=== PATIENT | male | born 1995 | race Caucasian/White ===

== ENCOUNTER 2018-12-09 08:53 | Inpatient (IN) ==
--- OUTSIDE RECORDS SUMMARY | 2018-12-09 08:57 | External Medical Summary | Continuity of Care Document ---
:1995 Author Name Anne Erickson, Provider Address Unavailable Unavailable , Care Team Providers Name Role Phone Martinez Elizabeth PA-C Unavailable [email or web address] Medel Unavailable Unavailable Unavailable Unavailable Unavailable Problems Hyperlipidemia (272.4) (E78.5) Abnormal TSH (790.6) (R79.89) Insulin pump titration (V53.91) (Z46.81) Type 1 diabetes mellitus, uncontrolled (250.03) (E10.65) Hypoglycemia unawareness in type 1 diabetes mellitus (250.81 ) (E10.649) Allergies and Adverse Reactions Adhesive Tape (Allergy) Reaction: Rash, Itching Latex (Allergy) Reaction: Itching, R kirsty Medications OneTouch UltraSoft Lancets; Test 5 times daily for multiple daily insulin injections Type 1 Diabetes Mellitus E10.9 Start: Refills: 0 BD Insulin Syringe U/F 30G X 1/2" 0.5 ML; USE DIREC KANCHAN. for pump failure VINEET Elizabeth Start: 06-Jan-2016 Quantity: 1 100 Unit Box Refills: 3 Glucagon Emergency 1 MG Injection Kit; U se for hypoglycemic emergency for Type 1 Diabetes Mellitus (E10.9) VINEET Elizabeth Start: 06-Jan-2016 Quantity: 1 Refills: 5 NovoLOG 100 UNIT/ML Subcutaneous Solutio n; INJECT 100 UNIT Daily via insulin pump VINEET Elizabeth Start: 06-Jan-2016 Quantity: 9 10 ML Vial Refills: 3 Contour Next Test In Vitro Strip; Test 6 times daily VINEET Campa Start: 08-Nov-2018 Quantity: 6 100 Strip Box Refills: 3 Bernadine Microlet Lancets MISC; Test 6 times daily Halle Elizabeth Start: 08-Nov-2018 Quantity: 6 100 Unit Package Refills: 3 Procedures Lipid Profile - NON Fasting Date: 11-Nov-2018 Ultra TSH Date: 08-Nov-2018 Hemoglobin A1C Date: 08-Nov-2018 History of Oral Surgery Status: Complete d Immunizations Immunizations not documented Family History Mother Family history of hypertension (V17.49) (Z82.49) Status: Act carlos Father Family history of hypertension (V17.49) (Z82.49) Status: Act carlos Social History - Smoking Status Never smoker Plan of Treatment Planned Observations Planned Goals not documented Results Diabetic Foot Exam IH (Pending) Laboratory: In House 08-Nov-2018 0:00 Monofilament Normal Vital Signs 08-Nov-2018 15:15 other 48 Comments: Total basa l dose other 102 Comments: Total shae y dose other 20 Comments: Sensitivit y factor Encounters Appointment; Martinez Elizabeth PA-C 08-Nov-2018 13:00 Encounter Diagnosis: Problem not documented Appointment; Najma Garcia R.D. 30-Aug-2018 9:30 Encounter Diagnosis: Problem not documented Appointment; Martinez Elizabeth PA-C 26-Jul-2018 15:30 Encounter Diagnosis: Problem not documented Appointment; Martinez Elizabeth PA-C 22-Mar-2018 11:00 Encounter Diagnosis: Problem not documented Appointment; Martinez Elizabeth PA-C 14-Dec-2017 9:00 Encounter Diagnosis: Problem not documented Appointment; Najma Garcia R.D. 06-Jul-2017 9:30 Encounter Diagnosis: Problem not documented Appointment; Martinez Elizabeth PA-C 01-Jun-2017 9:30 Encounter Diagnosis: Problem not documented Appointment; Martinez Elizabeth PA-C 23-Feb-2017 14:30 Encounter Diagnosis: Problem not documented Appointment; Martinez Elizabeth PA-C 19-Jan-2017 11:00 Encounter Diagnosis: Problem not documented
--- NOTE | 2018-12-09 09:24 | XRay Report ---
XR tibia fibula RT 2V CLINICAL HISTORY: 23 years-old Male presenting with injury to right tib fib. TECHNIQUE: Frontal and lateral views of the right lower leg were obtained. COMPARISON: None. FINDINGS: Spiral fractures of the distal tibial and fibular diaphyses. There is up to 4 mm of lateral displacem ent of the distal tibial fracture fragment. There may be a comminuted component in the fibular fractu re. An apparent butterfly fracture fragment at the distal fibular fracture is laterally displaced desiree roximately 3 mm from both the proximal and distal fibular components. There is no angulation. However , 5 mm of posterior displacement of the distal tibial fracture fragment is noted. No significant AP d isplacement at the fibular fracture. Ankle mortise grossly intact as is the knee joint. Soft tissue s welling at the distal lower leg. IMPRESSION: Spiral fractures of the distal tibial and fibular diaphyses. The fibular fracture may be comminuted. Minimal displacement as detailed above. No significant angulation. Electronically signed by: Cuco Campbell M.D. 12/09/2018 9:23 AM
[2018-12-09 09:31] LABS: Basophils # (auto) 0.03 K/uL (0-0.2); Basophils % (auto) 0.3 %; Eosinophils # (auto) 0.13 K/uL (0-0.5); Eosinophils % (auto) 1.5 %; Hematocrit (blood only) 43.4 % (42-52); Hemoglobin 15.9 g/dL (14.0-18.0); Immature Granulocytes # (auto) 0.03 K/uL (0.00-0.02); Immature Granulocytes % (auto) 0.3 %; Lymphocytes # (auto) 2.58 K/uL (1.2-3.4); Lymphocytes % (auto) 30.1 %; Mean Corpuscular Hgb Conc 36.6 g/dL (32-36); Mean Corpuscular Volume 81.1 fL (80-100); Monocytes # (auto) 0.89 K/uL (0.11-0.59); Monocytes % (auto) 10.4 %; Neutrophils # (auto) 4.92 K/uL (1.4-6.5); Neutrophils % (auto) 57.4 %; Platelet Count 239 K/uL (130-400); RDW Coefficient of Variation 12.6 % (11.5-14.5); RDW Standard Deviation 36.9 fL (36.4-46.3); Red Blood Count 5.35 M/uL (4.7-6.1); White Blood Count 8.58 K/uL (4.8-10.8)
[2018-12-09 09:47] LABS: Albumin Level 3.9 gm/dl (3.4-5.0); BUN Creatinine Ratio 12.9 (10-20); Calcium 8.8 mg/dl (8.5-10.1); Creatinine Clr Calc Pharmacy 109.7 ml/min; Est GFR (African American) 101.9; Potassium 3.8 mmol/L (3.5-5.1)
[2018-12-09 09:50] LABS: Albumin Globulin Ratio 1.1 (0.9-2); Bilirubin,Total 0.6 mg/dl (0.2-1); Globulin 3.5 gm/dl (2.5-4.0); Total Protein 7.4 gm/dl (6.4-8.2)
[2018-12-09] MEDS ORDERED: SODIUM CHLORIDE 0.9% 1000ML 1,000 ML IV ONE (10:52)
[2018-12-09] MEDS ORDERED: MoRPHine SULFATE 4 MG/ML 1 ML CARP\\VIAL IV STA (10:52)
[2018-12-09 11:22] LABS: Estimated Average Glucose 203 mg/dl; Hemoglobin A1C 8.7 % (4.5-5.6)
--- NOTE | 2018-12-09 11:23 | History & Physical Report ---
Date of Service December 09, 2018 Assessment & Plan (1) History of lower leg fracture: Assessment: Mildly displaced Right distal tibia/fibular fracture Plan: NPO. Will proceed with ORIF of Right distal tibia/fibular fracture with intramedullary jared this afternoon. Informed written consent obtained from patient in ED by Dr. Perry. Risks, benefits, alternatives, and post- operative rehab were discussed. Patient and family understand and wish to proceed with surgical intervention. Consult for medicine placed due to diabetic history. Will have patient admitted overnight after surgery for pain management and PT/OT eval tomorrow AM. History of Present Illness Chief Complaint: Right tib/fib fracture Primary Care Provider: SHARI PCP This 23 yo M is seen in ED (B 10) after twisting his Right lower leg at work this AM, causing his injury. Patient is currently splinted and resting in bed with pain fairly well controlled. Last intake of solid food was 4:30-5:00 AM and last liquid intake was 7:00 AM. Denies CP, SOB, nausea, vomiting, fever, chills, sweats, lethargy, head or neck trauma. Has hist of Type I diabetes with insulin pump use. Last HgA1C on 03/22/18 was 11.1. There is also one pending today. Allergies Allergy/AdvReac Type Severity Reaction Status Date / Time No Known Allergies Allergy Unverified 12/09/18 10:16 Home Medications Home Medications Medication Instructions Recorded Confirmed Type insulin aspart U-100 [Novolog 100 unit CONTINUOUS SUBCUTANEOUS 12/09/18 12/09/18 History U-100 Insulin aspart] INFUSION .INSULIN PUMP Past Med/Surg History Medical History Type 1 diabetes History of lower leg fracture RT Surgical History History of orthopedic surgery Social History current occupational status: employed Feels Safe at Home: Yes Smoking Status: Never smoker Review of Systems All systems reviewed & are unremarkable except as noted in HPI & below Physical Exam Vital Signs (Past 24 Hours): Last Vital Signs Temp 36.7 C 12/09/18 09:09 Pulse 98 H 12/09/18 09:09 Resp 18 12/09/18 09:09 BP 147/88 H 12/09/18 09:09 Pulse Ox 97 12/09/18 09:09 Physical Exam: Right lower leg: leg splinted with air splint provided by EMS. Patient has appropriate dexterity of digits. Able to depict light sensation to touch on dorsal and plantar surface of the foot. Swelling and tenderness at distal 1/3 tibia with no skin lesions. Periph pulses easily palpable. Cap refill less than 2 seconds. ROM at knee or ankle not tested due to fracture. NV intact in entire Rt LE. Results & Data Diagnostic Findings Tib/fib x-ray shows spiral fracture to Right distal tibia with fibular fracture at same level. Supervising Physician Co-Signing Physician Notes I saw and examined the patient in the ER, and marked his surgical site. HgA1c is pending, however, his last A1c showed poorly controlled DM. Patient understands that his diabetes places him at elevated risk for complications such as delayed wound healing, infection, non-union, and medical complications. After reviewing all the risks/benefits, alternatives and expected outcomes, he elects to proceed. All questions answered. Informed consent signed. Plan on proceeding to OR this afternoon once he clears his 8 hours NPO. Internal medicine consulted to assist in management of his DM.
[2018-12-09] MEDS ORDERED: INSULIN ASPART U continuous subcutaneous infusion SCH (11:30)
[2018-12-09] MEDS ORDERED: SODIUM CHLORIDE 0.9% 1000ML 1,000 ML IV SCH (11:30)
[2018-12-09] MEDS ORDERED: GLUCAGON FOR INJ 1 MG VIAL SQ PRN (11:46)
[2018-12-09] MEDS ORDERED: CARBOHYDRATES FOR HYPOGLYCEMIA PO PRN (11:46)
[2018-12-09] MEDS ORDERED: GLUCOSE 10 TABS/TUBE PO PRN (11:46)
[2018-12-09] MEDS ORDERED: DEXTROSE 50% 50 ML SYRINGE IV PRN (11:46)
[2018-12-09] MEDS ORDERED: GLUCOSE 40% GEL 15 GM TUBE PO PRN (11:46)
[2018-12-09] MEDS ORDERED: CEFAZOLIN 1,000 MG/7.5 ML IV PUSH IV ONE (12:15)
--- NOTE | 2018-12-09 12:25 | Consultation ---
Date of Consultation December 09, 2018 Assessment & Plan (1) Type 1 diabetes: Patient with Type I DM with insulin pump in place. A1C=8.7. Last PO intake this AM -Continue insulin pump for now, if inadequate control will place on hold and provide basal/bolus coverage -Please limit amount of time patient will be NPO -Fingersticks q4 hours -Glycemic management consult -Advance diet to Type I DM post-operatively when cleared by surgical team Present on Admission?: Yes (2) History of lower leg fracture: S/p mechanical fall with fracture of distal tibia/fibula. Patient in considerable pain, improved with IV medication. Neurovascularly intact. To proceed to the OR today at 15:00. Patient may proceed with surgery with no additional testing. Thank you for this consult. We will continue to follow. History of Present Illness Reason for Consultation: Perioperative medical management History of Present Illness Mr. Morse is a pleasant 23yo male with Type I DM, insuliln pump in-situ presenting with right tibia-fibula fracture sustained earlier today. 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 Unable to bear weight, severe pain. Imaging confirmed presence of spiral fractures of the distal tibia and fibula diaphysis. Presently pain 7-8/10. He was just administered Morphine. Reports good blood sugar control overall. He aims for 80 - 150. AIC =8.7 today which is markedly improved from prior value of 11.1. ER Course: Morphine 4mg IV, NSS Allergies Allergy/AdvReac Type Severity Reaction Status Date / Time No Known Allergies Allergy Unverified 12/09/18 10:16 Home Medications Home Medications Medication Instructions Recorded Confirmed Type insulin aspart U-100 [Novolog 100 unit CONTINUOUS SUBCUTANEOUS 12/09/18 12/09/18 History U-100 Insulin aspart] INFUSION .INSULIN PUMP Patient History Medical History Type 1 diabetes History of lower leg fracture RT Surgical History History of orthopedic surgery Family History Other Family history non-contributory Social History current occupational status: employed Feels Safe at Home: Yes Smoking Status: Never smoker Review of Systems Review of Systems: All systems reviewed & are unremarkable except as noted in HPI & below Physical Exam Physical Exam: General: patient resting comfortably, NAD, non-toxic in appearance, AA&O x 4 Skin: warm, dry, intact, no rashes or lesions HEENT: NC/AT, PERRL, EOMI, anicteric sclera, conjunctiva without injection, external ear normal to inspection and nontender, nares patent, moist mucus membranes, dentition intact, no oropharyngeal lesions, neck supple, trachea midline, no LAD, no thyromegaly, no JVD Heart: +S1/S2, regular, no m/r/g Lungs: equal air entry bilaterally, no rales/rhonchi/wheezes Abd: +BS, soft, NT/ND, no masses/organomegaly/ascites Ext: warm, 2+ pulses in UE/LE bilaterally, no clubbing/cyanosis or edema, right leg immobilized, neurovascularly intact Neuro: nonfocal, patient AA&O x 4, speech intact, no facial droop, moving all extremities on command with equal strength 5/5 Results & Data Vital Signs (Past 12 Hours) Vital Signs Temp Pulse Pulse Resp BP BP Pulse Ox 12/09/18 11:24 60 20 157/79 H 94 12/09/18 09:09 36.7 C 98 H 18 147/88 H 97 Laboratory Results Lab Results 12/09/18 12/09/18 12/09/18 Range/Units 09:18 09:18 09:18 WBC 8.58 (4.8-10.8) K/uL RBC 5.35 (4.7-6.1) M/uL Hgb 15.9 (14.0-18.0) g/dL Hct 43.4 (42-52) % MCV 81.1 (80-100) fL MCH 29.7 (25-34) pg MCHC 36.6 H (32-36) g/dL RDW Std Deviation 36.9 (36.4-46.3) fL RDW Coeff of Rosario 12.6 (11.5-14.5) % Plt Count 239 (130-400) K/uL MPV 9.0 (7.4-10.4) fL Immature Gran % (Auto) 0.3 % Neut % (Auto) 57.4 % Lymph % (Auto) 30.1 % [place] % (Auto) 10.4 % Eos % (Auto) 1.5 % Baso % (Auto) 0.3 % Immature Gran # (Auto) 0.03 H (0.00-0.02) K/uL Neut # (Auto) 4.92 (1.4-6.5) K/uL Lymph # (Auto) 2.58 (1.2-3.4) K/uL [place] # (Auto) 0.89 H (0.11-0.59) K/uL Eos # (Auto) 0.13 (0-0.5) K/uL Baso # (Auto) 0.03 (0-0.2) K/uL Sodium 137 (136-145) mmol/L Potassium 3.8 (3.5-5.1) mmol/L Chloride 103 (98-107) mmol/L Carbon Dioxide 27 (21-32) mmol/L Anion Gap 7.0 (3-11) BUN 15 (7-18) mg/dl Creatinine 1.15 (0.6-1.4) mg/dl Est Cr Clr Drug Dosing 109.7 ml/min Est GFR ( Amer) 101.9 Est GFR (Non-Af Amer) 88.0 BUN/Creatinine Ratio 12.9 (10-20) Glucose 216 H (70-99) mg/dl Estimat Average Glucose 203 mg/dl Hemoglobin A1c 8.7 H (4.5-5.6) % Calcium 8.8 (8.5-10.1) mg/dl Total Bilirubin 0.6 (0.2-1) mg/dl AST 17 (15-37) U/L ALT 22 (12-78) U/L Alkaline Phosphatase 111 (45-117) U/L Total Protein 7.4 (6.4-8.2) gm/dl Albumin 3.9 (3.4-5.0) gm/dl Globulin 3.5 (2.5-4.0) gm/dl Albumin/Globulin Ratio 1.1 (0.9-2) Diagnostic Findings XR tibia fibula RT 2V CLINICAL HISTORY: 23 years-old Male presenting with injury to right tib fib. TECHNIQUE: Frontal and lateral views of the right lower leg were obtained. COMPARISON: None. FINDINGS: Spiral fractures of the distal tibial and fibular diaphyses. There is up to 4 mm of lateral displacement of the distal tibial fracture fragment. There may be a comminuted component in the fibular fracture. An apparent butterfly fracture fragment at the distal fibular fracture is laterally displaced approximately 3 mm from both the proximal and distal fibular components. There is no angulation. However, 5 mm of posterior displacement of the distal tibial fracture fragment is noted. No significant AP displacement at the fibular fracture. Ankle mortise grossly intact as is the knee joint. Soft tissue swelling at the distal lower leg. IMPRESSION: Spiral fractures of the distal tibial and fibular diaphyses. The fibular fracture may be comminuted. Minimal displacement as detailed above. No significant angulation. Electronically signed by: Cuco Campbell M.D. 12/09/2018 9:23 AM Dictated: 12/09/18919 Transcribed: 12/09/18919 (1) Type 1 diabetes Diabetes mellitus complication status: without complication Qualified Code(s): E10.9 - Type 1 diabetes mellitus without complications
[2018-12-09] MEDS ORDERED: LIDOCAINE HCL 2% 2 ML VIAL/AMP(20MG/ML) INFIL ONE (12:56)
[2018-12-09] MEDS ORDERED: MIDAZOLAM HCL 1 MG/ML 2ML VIAL ONE (12:56)
[2018-12-09] MEDS ORDERED: PROPOFOL IV EMULSION 10 MG/ML 20 ML VIAL IV ONE (12:56)
[2018-12-09] MEDS ORDERED: fentaNYL citrate 100 MCG/2 ML VIAL ONE (12:56)
--- NOTE | 2018-12-09 12:57 | Anesthesiology Consultation ---
Date of Service December 09, 2018 Assessment & Plan Chart Review Chart Review: Acceptable Risk for Surgery and Patient NOT seen in Pre Admission Testing Consults Requested none ASA ASA2E Proposed Anesthesia Anesthesia Type: General Risk / Benefits Reviewed With: PT / POA / Parent / Guardian, Accepts Plan and Informed Consent Obtained History Surgery Operation Date: 12/09/18 10:20 Proposed Procedures p Right Intramedullary Nail Tibia-Fibula Fracture - Cuco Perry MD Height/Weight Height: 5 ft 10 in Weight: 87.9 kg Allergies Allergy/AdvReac Type Severity Reaction Status Date / Time No Known Allergies Allergy Verified 12/09/18 12:45 Medications Home Medications Medication Instructions Recorded Confirmed Last Taken insulin aspart U-100 [Novolog 100 unit CONTINUOUS SUBCUTANEOUS 12/09/18 12/09/18 12/09/18 U-100 Insulin aspart] INFUSION .INSULIN PUMP NPO Date Last Intake of Fluids: 12/09/18 Time Last Intake of Fluids: 07:00 Date Last Intake of Solids: 12/09/18 Time Last Intake of Solids: 05:00 Past Medical History Medical History Type 1 diabetes History of lower leg fracture RT Exercise / Class Metabolic Activity II 4-5 Yardwork/Stairs/Walk up hill Past Family History Family History Other Family history non-contributory Past Surgical History Surgical History History of orthopedic surgery Past Anesthesia History No Hx of Anesthesia Complications and No Family Hx of Anesthesia Complications History of PONV No Hx of PONV and No Hx of Motion Sickness Social History Smoking Status: Never smoker Physical Exam Vital Signs Last Vital Signs Temp 36.7 C 12/09/18 09:09 Pulse 85 12/09/18 12:18 Resp 20 12/09/18 12:18 BP 146/80 H 12/09/18 12:18 Pulse Ox 97 12/09/18 12:18 Constitutional not obese ENMT Mouth: + poor dentition and + chipped teeth (both R & L UCI's) Thyromental Distance: > or= 3.5 Finger Breadths Mallampati Class: II Neck normal visual inspection and trachea midline; neck extension not limited Respiratory normal respiratory effort Auscultation: lungs clear to auscultation bilaterally Cardiovascular Rate/Rhythm: regular rate and regular rhythm Heart Sounds: no murmur Musculoskeletal Spine: normal cervical ROM Neurologic moves all extremities Motor/Sensory: no sensory deficit Psychiatric Orientation: alert; + not oriented x 3
[2018-12-09] MEDS ORDERED: BUPIVACAINE/EPINEPHRINE 0.5% MPF 1:200,000 30 ML VIAL ONE (13:44)
[2018-12-09] MEDS ORDERED: CEFAZOLIN 250 MG/ML 1 GM VIAL ONE (13:45)
[2018-12-09] MEDS ORDERED: HYDROmorphone INJ 2 MG/ML SYR/VIAL ONE (13:52)
[2018-12-09] MEDS ORDERED: ONDANSETRON INJ 2 MG/ML 2 ML VIAL ONE (14:08)
[2018-12-09] MEDS ORDERED: CEFAZOLIN 1000MG 1,000 MG/7.5 ML SYR IV ONE (14:12)
[2018-12-09] MEDS ORDERED: PROMETHAZINE HCL 12.5 MG in SODIUM CHLORIDE 0.9% 50 ML IV PRN (14:57)
[2018-12-09] MEDS ORDERED: ATROPINE SULFATE 0.1 MG/ML 10ML SYR IV PRN (14:57)
[2018-12-09] MEDS ORDERED: FLUMAZENIL 0.1 MG/1 ML 10 ML VIAL IV PRN (14:57)
[2018-12-09] MEDS ORDERED: ePHEDrine sulfate 50 MG/ML AMP IV PRN (14:57)
[2018-12-09] MEDS ORDERED: NALOXONE HCL 0.4 MG/1 ML VIAL/CARP IV PRN ×2 (14:57→18:06)
[2018-12-09] MEDS ORDERED: ONDANSETRON INJ 2 MG/ML 2 ML VIAL IV PRN ×2 (14:57→18:06)
[2018-12-09] MEDS ORDERED: PHARMACY GLYCEMIC MGMT CONSULT PRN (15:32)
--- NOTE | 2018-12-09 16:03 | Emergency Department Note ---
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 The patient reports that he tripped on a concrete pole and fell, twisting his leg and injuring his leg. He states that he has fracture the same area before. He denies any injuring his head during this fall or loss of consciousness. He also denies any neck pain, abdominal pain, or chest pain. He notes that he has a history of Type 1 diabetes and reports that his sugar has been in the 150s. He states that he last ate earlier today. Home Medications Home Medications Medication Instructions Recorded Confirmed Type insulin aspart U-100 [Novolog 100 unit CONTINUOUS SUBCUTANEOUS 12/09/18 12/09/18 History U-100 Insulin aspart] INFUSION .INSULIN PUMP Allergies Allergy/AdvReac Type Severity Reaction Status Date / Time No Known Allergies Allergy Verified 12/09/18 12:45 Past Med/Surg History Medical History Type 1 diabetes History of lower leg fracture RT Surgical History History of orthopedic surgery Family History Other Family history non-contributory Social History current occupational status: employed Feels Safe at Home: Yes Smoking Status: Never smoker Review of Systems See HPI for pertinent positives & negatives. and A total of 10 systems reviewed and were otherwise negative Physical Exam Vital Signs Vital Signs - 24 hr 12/09/18 09:09 12/09/18 11:24 12/09/18 12:18 Temperature 36.7 C Temperature Source Oral Sepsis Recent Fever Within 48 Hours No Sepsis New/Unexplained Change in Mental Status No Sepsis Action Taken by Nursing No Action Required Pulse Rate 98 H Pulse Rate [Apical] 60 85 Pulse Rate [Left Finger] Pulse Rhythm Regular Pulse Rhythm [Apical] Regular Regular Pulse Rhythm [Left Finger] Pulse Strength Normal Pulse Strength [Apical] Normal Normal Pulse Strength [Left Finger] Respiratory Rate 18 20 20 Respiratory Effort / Characteristics Non-Labored Spontaneous Non-Labored Spontaneous Non-Labored Spontaneous Respiratory Depth Normal Normal Normal Respiratory Pattern Regular Regular Blood Pressure 147/88 H Blood Pressure [Right Arm] 157/79 H 146/80 H Blood Pressure Mean 107 Blood Pressure Mean [Right Arm] 105 102 Blood Pressure Position Sitting Blood Pressure Position [Right Arm] Pulse Oximetry 97 94 97 Oxygen Delivery Method Room Air Room Air Room Air 12/09/18 12:47 Temperature 37.4 C Temperature Source Oral Sepsis Recent Fever Within 48 Hours Sepsis New/Unexplained Change in Mental Status Sepsis Action Taken by Nursing Pulse Rate Pulse Rate [Apical] Pulse Rate [Left Finger] 78 Pulse Rhythm Pulse Rhythm [Apical] Pulse Rhythm [Left Finger] Regular Pulse Strength Pulse Strength [Apical] Pulse Strength [Left Finger] Normal Respiratory Rate 20 Respiratory Effort / Characteristics Non-Labored Spontaneous Respiratory Depth Normal Respiratory Pattern Regular Blood Pressure Blood Pressure [Right Arm] 144/77 H Blood Pressure Mean Blood Pressure Mean [Right Arm] 99 Blood Pressure Position Blood Pressure Position [Right Arm] Sitting Pulse Oximetry 96 Oxygen Delivery Method Room Air General: Uncomfortable appearing young male complaining of pain. HEENT: Normal cephalic atraumatic. Pupils are equal round and reactive to light. Extraocular movements are intact. Oropharynx is pink with moist mucous membra satnam. No swelling of the mouth lips or tongue. Neck: Supple with a midline trachea. No meningeal signs or stiffness, no JVD or bruits. No Stridor. Chest: Clear to auscultation bilaterally. No wheezes or rhonchi. No increased work of breathing. Heart: regular rate and rhythm. Abdomen: Soft nontender, nondistended without rebound guarding or rigidity. Extremities: No cyanosis clubbing or edema. No calf tenderness or asymmetry. Right leg is splinted. Normal DP and motor sensation intact. Spine/Back. Non tender to palpation. No CVA tenderness Skin: Good turgor without rashes. Neurologic exam: Cranial nerves two through 12 are intact. Motor and sensation are intact and symmetrical throughout. Course 0855: Past medical records reviewed. The patient was evaluated in room B10. A complete history and physical examination was performed. 1043: I discussed the patients case with Dr. [facility]. He will come evaluate the patient. 1210: Dr. Perry will be taking the patient to the OR. Administered Medications Discontinued Medications Bupivacaine HCl/Epinephrine Bitart (Sensorcaine/Epinephrine 0.5% Mpf 1:200,000) Confirm Administered Dose 30 ml .ROUTE .STK-MED ONE Stop: 12/09/18 13:45 Last Admin: 12/09/18 14:44 Dose: 30 ml Documented by: [id number] Cefazolin Sodium (Ancef 1000mg) Confirm Administered Dose 2,000 mg IV .STK-MED ONE Stop: 12/09/18 12:16 Last Admin: 12/09/18 12:17 Dose: 2,000 mg Documented by: [id number] Sodium Chloride (Nss 1000ml) 1,000 mls @ 999 mls/hr IV .Q1H1M ONE Stop: 12/09/18 11:52 Last Admin: 12/09/18 11:08 Dose: 999 mls/hr Documented by: [id number] Cefazolin Sodium (Ancef 1000mg) 1,000 mg in 7.5 mls @ 2.5 mls/min IV ONCE ONE Stop: 12/09/18 14:14 Last Admin: 12/09/18 13:47 Dose: 2.5 mls/min Documented by: [id number] Morphine Sulfate (Morphine Sulfate) 4 mg IV NOW STA Stop: 12/09/18 10:53 Last Admin: 12/09/18 11:07 Dose: 4 mg Documented by: [id number] Medical Decision Making Differential Diagnosis Differential diagnosis includes: fracture, dislocation, contusion, electrolyte and metabolic abnormality. Medical Records Attestation: I reviewed the patient's medical records. Home Medications Current Medication List: was personally reviewed by me Laboratory Data Attestation: I reviewed the patient's lab results. Result diagrams: 12/09/18 09:18 12/09/18 09:18 Lab Results 12/09/18 12/09/18 12/09/18 Range/Units 09:18 09:18 09:18 WBC 8.58 (4.8-10.8) K/uL RBC 5.35 (4.7-6.1) M/uL Hgb 15.9 (14.0-18.0) g/dL Hct 43.4 (42-52) % MCV 81.1 (80-100) fL MCH 29.7 (25-34) pg MCHC 36.6 H (32-36) g/dL RDW Std Deviation 36.9 (36.4-46.3) fL RDW Coeff of Rosario 12.6 (11.5-14.5) % Plt Count 239 (130-400) K/uL MPV 9.0 (7.4-10.4) fL Immature Gran % (Auto) 0.3 % Neut % (Auto) 57.4 % Lymph % (Auto) 30.1 % Daggett % (Auto) 10.4 % Eos % (Auto) 1.5 % Baso % (Auto) 0.3 % Immature Gran # (Auto) 0.03 H (0.00-0.02) K/uL Neut # (Auto) 4.92 (1.4-6.5) K/uL Lymph # (Auto) 2.58 (1.2-3.4) K/uL Daggett # (Auto) 0.89 H (0.11-0.59) K/uL Eos # (Auto) 0.13 (0-0.5) K/uL Baso # (Auto) 0.03 (0-0.2) K/uL Sodium 137 (136-145) mmol/L Potassium 3.8 (3.5-5.1) mmol/L Chloride 103 (98-107) mmol/L Carbon Dioxide 27 (21-32) mmol/L Anion Gap 7.0 (3-11) BUN 15 (7-18) mg/dl Creatinine 1.15 (0.6-1.4) mg/dl Est Cr Clr Drug Dosing 109.7 ml/min Est GFR ( Amer) 101.9 Est GFR (Non-Af Amer) 88.0 BUN/Creatinine Ratio 12.9 (10-20) Glucose 216 H (70-99) mg/dl POC Glucose (70-99) Estimat Average Glucose 203 mg/dl Hemoglobin A1c 8.7 H (4.5-5.6) % Calcium 8.8 (8.5-10.1) mg/dl Total Bilirubin 0.6 (0.2-1) mg/dl AST 17 (15-37) U/L ALT 22 (12-78) U/L Alkaline Phosphatase 111 (45-117) U/L Total Protein 7.4 (6.4-8.2) gm/dl Albumin 3.9 (3.4-5.0) gm/dl Globulin 3.5 (2.5-4.0) gm/dl Albumin/Globulin Ratio 1.1 (0.9-2) 12/09/18 12/09/18 12/09/18 Range/Units 12:40 14:05 15:10 WBC (4.8-10.8) K/uL RBC (4.7-6.1) M/uL Hgb (14.0-18.0) g/dL Hct (42-52) % MCV (80-100) fL MCH (25-34) pg MCHC (32-36) g/dL RDW Std Deviation (36.4-46.3) fL RDW Coeff of Rosario (11.5-14.5) % Plt Count (130-400) K/uL MPV (7.4-10.4) fL Immature Gran % (Auto) % Neut % (Auto) % Lymph % (Auto) % Daggett % (Auto) % Eos % (Auto) % Baso % (Auto) % Immature Gran # (Auto) (0.00-0.02) K/uL Neut # (Auto) (1.4-6.5) K/uL Lymph # (Auto) (1.2-3.4) K/uL Daggett # (Auto) (0.11-0.59) K/uL Eos # (Auto) (0-0.5) K/uL Baso # (Auto) (0-0.2) K/uL Sodium (136-145) mmol/L Potassium (3.5-5.1) mmol/L Chloride (98-107) mmol/L Carbon Dioxide (21-32) mmol/L Anion Gap (3-11) BUN (7-18) mg/dl Creatinine (0.6-1.4) mg/dl Est Cr Clr Drug Dosing ml/min Est GFR ( Amer) Est GFR (Non-Af Amer) BUN/Creatinine Ratio (10-20) Glucose (70-99) mg/dl POC Glucose 126 H 154 H 161 H (70-99) Estimat Average Glucose mg/dl Hemoglobin A1c (4.5-5.6) % Calcium (8.5-10.1) mg/dl Total Bilirubin (0.2-1) mg/dl AST (15-37) U/L ALT (12-78) U/L Alkaline Phosphatase (45-117) U/L Total Protein (6.4-8.2) gm/dl Albumin (3.4-5.0) gm/dl Globulin (2.5-4.0) gm/dl Albumin/Globulin Ratio (0.9-2) Imaging Data Radiologist's Impression: Radiology results as stated below per my review and the radiologist's interpretation: XR tibia fibula RT 2V CLINICAL HISTORY: 23 years-old Male presenting with injury to right tib fib. TECHNIQUE: Frontal and lateral views of the right lower leg were obtained. COMPARISON: None. FINDINGS: Spiral fractures of the distal tibial and fibular diaphyses. There is up to 4 mm of lateral displacement of the distal tibial fracture fragment. There may be a comminuted component in the fibular fracture. An apparent butterfly fracture fragment at the distal fibular fracture is laterally displaced approximately 3 mm from both the proximal and distal fibular components. There is no angulation. However, 5 mm of posterior displacement of the distal tibial fracture fragment is noted. No significant AP displacement at the fibular fracture. Ankle mortise grossly intact as is the knee joint. Soft tissue swelling at the distal lower leg. IMPRESSION: Spiral fractures of the distal tibial and fibular diaphyses. The fibular f racture may be comminuted. Minimal displacement as detailed above. No significant angulation. Electronically signed by: Cuco Campbell M.D. 12/09/2018 9:23 AM Blood Pressure Blood Pressure Findings: Elevated blood pressure Blood Pressure Disposition: further management by hospitalist SWEETIE Narrative This patient comes in as described above he comes in after injuring his right leg. He tripped over some sort of concrete piling. His foot was planted and his leg twisted he felt a snap. He was brought in by EMS. He has intact skin he has pain in his right mid marquez going up the leg. It does not appear to be significantly deformed however is in a splint. Distally has bounding pulses in his foot with good capillary refill and color. There is no evidence to suggest compartment syndrome or neurovascular compromise. He is a type I diabetic. IV access was established and blood work was obtained his blood sugar is mildly elevated 200. He has no acute electrolyte or metabolic abnormality's. X-rays show spiral fracture of the tib-fib with minimal displacement. Looking at this, I think is likely an operative fix and I have consulted Dr. Perry, the orthopedist, who saw him in the ER and will be taking him to the OR for further operative repair. Impression & Plan Tibia/fibula fracture, Type 1 diabetes Discharge Plan Visit Data Chief Complaint: Fall Other Complaint: Leg Injury/Pain ED Provider: Dax Valera Discharge Problem: Tibia/fibula fracture, Type 1 diabetes Patient Disposition: Being Evaluated by Surgeon Discharge Instructions Interventions: ED Discharge Assessment Last Done: 12/09/18 12:25 Forms Stand Alone Forms: My [facility] Ene[facility]gy Prescriptions Prescriptions: No Action Novolog U-100 Insulin aspart 100 unit/mL solution 100 unit continuous subcutaneous infusion .INSULIN PUMP RF: 0 Referrals Referrals: PCP,NO [Primary Care Provider] - Discharge Problem: Tibia/fibula fracture Qualifiers: Encounter type: initial encounter Fracture type: closed Laterality: right Qualified Code(s): S82.201A - Unspecified fracture of shaft of right tibia, initial encounter for closed fracture Type 1 diabetes Qualifiers: Diabetes mellitus complication status: without complication Qualified Code(s): E10.9 - Type 1 diabetes mellitus without complications The scribe's documentation has been prepared under my direction and personally reviewed by me in its entirety. I confirm that the note above accurately reflects all work, treatment, procedures, and medical decision making performed by me.
--- NOTE | 2018-12-09 16:08 | Fluoroscopy Report ---
FL tibia/fibula RT 2V HISTORY: 23 years-old Male ORIF RIGHT TIB/FIB acute fracture of the right lower leg COMPARISON: Right tibia and fibula radiographs of same day at 9:05 AM TECHNIQUE: 4 spot fluoroscopic images of the right tibia and fibula were obtained utilizing 183.5 sec onds fluoroscopy time FINDINGS: Comminuted distal fibular fracture with oblique distal tibial fracture redemonstrated. Status post pl acement of an elongated intramedullary jared about the tibia with 2 distal cannulated screws. There is improved alignment status post reduction and fixation with a few millimeters of persistent displaceme nt. Soft tissue swelling is noted. IMPRESSION: Fluoroscopic assistance as above. Please see operative report for further details. The above report was generated using voice recognition software. It may contain grammatical, syntax o r spelling errors. Electronically signed by: Tim Holguin M.D. 12/09/2018 4:07 PM
--- NOTE | 2018-12-09 16:10 | Post Operative Brief Note ---
Immediate Post Op Note v1 Date of Surgery December 09, 2018 Pre & Post Diagnosis Operation Date: 12/09/18 10:20 Pre-Op Diagnosis: Displaced Right Distal Tibia/Fibular Fracture Post-Op Diagnosis: Displaced Right Distal Tibia/Fibular Fracture Procedure Operation Date: 12/09/18 10:20 Actual Procedures p Open Reduction Internal Fixation Right Tibia-Fibula Fractures with Tibial Nail(Right) - Cuco Perry MD Surgeon Cuco Perry MD Scorer Helper CELESTINA Zaragoza PA-C Estimated Blood Loss 50 Findings Consistent with Post-Op Diagnosis Fluids 900 cc Anesthesia Type General Complications none Disposition Accompanied Patient To Recovery: No Disposition: Recovery Room
--- NOTE | 2018-12-09 16:20 | Operative Report ---
Post Operative Report Pre & Post Diagnosis Operation Date: 12/09/18 10:20 Pre-Op Diagnosis: Displaced Right Distal Tibia/Fibular Fracture Post-Op Diagnosis: Displaced Right Distal Tibia/Fibular Fracture Procedure Operation Date: 12/09/18 10:20 Actual Procedures p Open Reduction Internal Fixation Right Tibia-Fibula Fractures with Tibial Nail(Right) - Cuco Perry MD Surgeon Cuco Perry MD Nurse Prn CELESTINA Zaragoza PA-C Estimated Blood Loss 50 Findings Consistent with Post-Op Diagnosis Specimens none Complications none Disposition Accompanied Patient To Recovery: Yes Disposition: Recovery Room Description of Procedure I was present during the entire case assisting with wound closure, dressing and splint application. Please see Dr. Perry procedure note for specifics of the case. I attest to the content of the Intraoperative Record and any orders documented therein. Any exceptions are noted below.
--- NOTE | 2018-12-09 16:58 | Anesthesiology Progress Note ---
Date of Service December 09, 2018 Anesthesia Post Procedure Vital Signs Vital Signs: Temp Pulse Pulse Pulse Resp BP BP 12/09/18 16:50 81 16 142/67 H 12/09/18 16:40 82 16 145/66 H 12/09/18 16:30 88 16 156/73 H 12/09/18 16:20 36.5 C 81 16 148/68 H 12/09/18 12:47 37.4 C 78 20 144/77 H 12/09/18 12:18 85 20 146/80 H 12/09/18 11:24 60 20 157/79 H 12/09/18 09:09 36.7 C 98 H 18 147/88 H Pulse Ox 12/09/18 16:50 97 12/09/18 16:40 98 12/09/18 16:30 99 12/09/18 16:20 98 12/09/18 12:47 96 12/09/18 12:18 97 12/09/18 11:24 94 12/09/18 09:09 97 Pain Intensity Right Anterior Medial Ankle: Pain Intensity: 2 Transfer of Care Handoff Completed per policy Notes Mental Status: alert / awake / arousable Patient Amnestic to Procedure: Yes Nausea / Vomiting: adequately controlled Pain: adequately controlled Airway Patency, RR, SpO2: stable & adequate BP & HR: stable & adequate Hydration State: stable & adequate Anesthetic Complications: no major complications apparent and Pt Satisfied with anesthetic care Notes: The patient is awake and stable. Postop BSG was 225. His insulin pump was turned off so the patient turned it back on and will program his insulin rate.
[2018-12-09] MEDS ORDERED: INSULIN REGULAR 250 UNITS in SODIUM CHLORIDE 0.9% 247.5 ML IV SCH (17:00)
[2018-12-09] MEDS: HYDROmorphone INJ 1 MG/ML SYRINGE IV PRN ×5 (17:01→17:21)
--- NOTE | 2018-12-09 17:28 | XRay Report ---
XR tibia fibula RT 2V HISTORY: 23 years-old Male post op acute fracture of the right tibia and fibula COMPARISON: Right tibia and fibula radiographs 12/09/2018 9:05 AM TECHNIQUE: 2 radiographs of the right tibia and fibula FINDINGS: Comminuted fractures of the distal fibular diaphysis redemonstrated along with acute oblique fracture of the distal diaphyseal tibia. Status post placement of an elongated intramedullary jared about the t ibia with 2 proximal and 2 distal cannulated fixation screws. No significant angulation. 3 mm lateral displacement about the distal tibia and fibula redemonstrated. Expected postoperative swelling with deep tissue air adjacent skin bereket. IMPRESSION: Acute fractures of the distal tibia and fibula redemonstrated with ORIF changes. Minimal displacement as above. The above report was generated using voice recognition software. It may contain grammatical, syntax o r spelling errors. Electronically signed by: Tim Holguin M.D. 12/09/2018 5:27 PM
[2018-12-09] MEDS ORDERED: INSULIN ASPART 100 UNITS/ML 3 ML PEN SC SCH (18:00)
[2018-12-09] MEDS ORDERED: PHARMACY GLYCEMIC MGMT CONSULT STA (18:06)
[2018-12-09] MEDS ORDERED: ALUMINUM/MAGNESIUM SUSP 30 ML UDC PO PRN (18:06)
[2018-12-09] MEDS ORDERED: BISACODYL 10 MG SUPP PR PRN (18:06)
[2018-12-09] MEDS ORDERED: METOCLOPRAMIDE HCL INJ 5 MG/ML 2 ML VIAL IV PRN (18:06)
[2018-12-09] MEDS ORDERED: TAMSULOSIN HCL 0.4 MG CAP PO PRN (18:06)
[2018-12-09] MEDS ORDERED: MAGNESIUM HYDROXIDE SUSP 30 ML UDC PO PRN (18:06)
[2018-12-09] MEDS ORDERED: DiphenhydrAMINE HCL 50 MG/ML VIAL IV PRN (18:06)
[2018-12-09] MEDS: NovoLOG INSULIN PUMP SCH ×2 (19:53→21:40)
[2018-12-09] MEDS ORDERED: SENNA 8.6 MG TAB PO SCH (21:00)
[2018-12-09] MEDS: ACETAMINOPHEN 500 MG TAB PO SCH (21:11)
[2018-12-09] MEDS: CEFAZOLIN 2000MG 2,000 MG/15 ML SYR IV SCH (21:11)
[2018-12-09] MEDS: DOCUSATE SODIUM 100 MG CAP PO SCH (21:12)
[2018-12-09] MEDS: HYDROmorphone INJ 0.5 MG/0.5 ML SYR IV PRN (21:46)
[2018-12-09] MEDS: SODIUM CHLORIDE 0.9% 1000ML 1,000 ML IV SCH (22:27)
--- NOTE | 2018-12-10 00:15 | Operative Report ---
DATE OF OPERATION: 12/09/2018 DATE OF SURGERY: 12/09/2018 PREOPERATIVE DIAGNOSIS: Right tib-fib fracture, closed. POSTOPERATIVE DIAGNOSIS: Right tib-fib fracture, closed. OPERATION PERFORMED: Open reduction internal fixation of right tib-fib fracture using intramedullary nail. SURGEON: Cuco Perry MD WAREHOUSE ADMINISTRATIVE ASSISTANT: Robb Zaragoza. ESTIMATED BLOOD LOSS: 50 mL. INTRAVENOUS FLUIDS: 900 mL crystalloid. SPECIMENS: None. COMPLICATIONS: None. IMPLANTS: 1. One Synthes 11 mm diameter cannulated tibial nail 360 mm in length. 2. Four cross-locking screws 5 mm in diameter measuring 44 mm, 36 mm, 60 mm, and 50 mm. 3. One 0 end cap. INDICATIONS: Lio is a 23-year-old type 1 diabetic male who twisted his leg at work today sustaining a closed displaced tib-fib fracture on the right hand side. He has a hemoglobin A1c of 8.7 and is on an insulin pump. I had a long discussion with him about the risks and benefits of surgery, alternatives to surgery and expected outcomes. He understands that he has had an elevated risk for complications secondary to his diabetes. After reviewing all the risks and benefits of surgery, he elected to proceed with surgery. All questions were answered. Informed consent was signed. OPERATIVE FINDINGS: The fracture was reduced and stabilized with a Synthes 11 mm diameter titanium nail. Two proximal and two distal cross-locking screws were used to control rotation. DESCRIPTION OF OPERATION: The patient was identified in the preoperative holding area where surgical site was marked. He was brought back to main operating room where general anesthesia was administered on the hospital bed. Once he was asleep, he was carefully moved over on to the OSI fracture table. He has an insulin pump and so we carefully padded around this location on his left buttock as well as protected the pump on his chest. A bump was then placed underneath the operative hip. He was prepped and draped in normal sterile fashion. Prior to incision, a multidisciplinary timeout was called. All in the room were in agreement. We began by making a 3 cm long incision along the medial border of the patellar tendon. I dissected down through subcutaneous tissues to the level of the fascia. Full thickness flaps were raised. I then incised through the fascia just along the medial border of the patellar tendon. The sharp awl was then placed down on the proximal tibia and was optimized on the AP view. We then moved the fluoroscopy machine to the lateral view and again optimized our position on the lateral view. The guidewire was then drilled down into the proximal tibia. After checking this on the AP and lateral views, we then placed our entry reamer. We then placed the guidewire down through the hole and tapped it down to the level of the fracture. At this point, the fracture was reduced with a combination of traction and a slight varus stress. We then tapped the guidewire across the fracture site and then gradually tapped it down to the center-center position of the ankle on the AP and lateral fluoroscopic views. Next, the fracture was held reduced while we sequentially reamed up. We started with an 8.5 mm reamer, then used a 9.5 mm reamer and then sequentially reamed up with 0.5 mm reamer sizes all the way to a 12.5. He started to get a little bit of chatter at 11, which was a preoperative measurement of his isthmus. We then measured the length of our nail and it was approximately 370 mm. Therefore, I elected to use a 360 mm nail. The nail was then opened up and then a tap down over the guidewire advancing all the way to the level of the ankle. Next, the fluoroscopy was used to obtain a perfect kw[place]uk of the medial to lateral cross-locking screws. Two of these were placed distally. We then checked his rotation which we were happy with. We had a good reduction. There was no need to further backslap the fracture. Therefore, I placed 2 proximal cross-locking screws. The outrigger device was then removed. Our final fluoroscopic images were obtained. I did elect to place an end cap in case I ever needed to remove the nail. This was a 0 mm end cap. At this point, the wounds were irrigated with copious amounts of normal saline. His fascial incision was closed with a running 0 Vicryl suture. 2-0 Vicryl was used in the deep dermis followed by ebreket in the skin and for the stab wounds for the cross-locking screws. He was then placed into a posterior and U slab plaster splint. He was awoken from anesthesia and transferred to the recovery room in stable condition. POSTOPERATIVE COURSE: The patient will be admitted overnight for pain control and monitoring. He will be nonweightbearing for the next 2 weeks. In 2 weeks, he can have the splint removed and his leg can be open to air. He can start weightbearing as tolerated at that point. We will need hard copy films done in the recovery room today as well as it is 2 and 6 week followup visits. He will be on Xarelto for DVT prophylaxis. Internal medicine has been consulted for perioperative management of his glucose and we will aim for tight blood sugar control to reduce the risk of infection and other complications. I attest to the content of the Intraoperative Record and any orders documented therein. Any exception s are noted below.
[2018-12-10] MEDS: CEFAZOLIN 2000MG 2,000 MG/15 ML SYR IV SCH (04:03)
[2018-12-10] MEDS: HYDROmorphone INJ 0.5 MG/0.5 ML SYR IV PRN ×3 (04:12→12:34)
[2018-12-10] MEDS: ACETAMINOPHEN 500 MG TAB PO SCH ×2 (04:50→14:09)
[2018-12-10] MEDS: OXYCODONE HCL IR 5 MG TAB (IMMEDIATE RELEASE) PO PRN ×3 (04:51→14:11)
[2018-12-10] MEDS: SODIUM CHLORIDE 0.9% 1000ML 1,000 ML IV SCH (05:14)
[2018-12-10] MEDS ORDERED: CEFAZOLIN 2000MG 2,000 MG/15 ML SYR IV SCH (06:00)
[2018-12-10 06:29] LABS: Hematocrit (blood only) 35.5 % (42-52); Hemoglobin 12.7 g/dL (14.0-18.0); Mean Corpuscular Hgb Conc 35.8 g/dL (32-36); Mean Corpuscular Volume 82.2 fL (80-100); Mean Platelet Volume 8.7 fL (7.4-10.4); Platelet Count 185 K/uL (130-400); RDW Coefficient of Variation 12.7 % (11.5-14.5); RDW Standard Deviation 38.4 fL (36.4-46.3); Red Blood Count 4.32 M/uL (4.7-6.1); White Blood Count 10.97 K/uL (4.8-10.8)
[2018-12-10 06:56] LABS: BUN Creatinine Ratio 12.9 (10-20); Calcium 7.9 mg/dl (8.5-10.1); Est GFR (African American) 112.5; Est GFR (Non-African American) 97.1; Potassium 3.9 mmol/L (3.5-5.1)
[2018-12-10] MEDS: NovoLOG INSULIN PUMP SCH ×2 (08:12→12:32)
[2018-12-10] MEDS: DOCUSATE SODIUM 100 MG CAP PO SCH (08:12)
--- NOTE | 2018-12-10 08:30 | Anesthesiology Progress Note ---
Date of Service December 10, 2018 Anesthesia Post Procedure Vital Signs Vital Signs: Temp Pulse Pulse Pulse Resp BP BP 12/10/18 06:54 36.8 C 71 18 140/80 12/10/18 04:15 37 C 75 18 134/83 12/09/18 23:18 37.0 C 62 14 128/71 12/09/18 21:01 36.7 C 72 16 155/81 H 12/09/18 20:00 36.7 C 62 16 142/75 H 12/09/18 18:57 36.3 C L 71 17 151/79 H 12/09/18 18:25 36.8 C 87 17 151/77 H 12/09/18 18:12 37.0 C 79 16 161/73 H 12/09/18 17:40 37.2 C 72 21 145/56 H 12/09/18 17:30 37.2 C 77 16 129/60 12/09/18 17:20 82 16 151/61 H 12/09/18 17:10 96 H 16 133/74 12/09/18 17:00 90 16 153/79 H 12/09/18 16:50 81 16 142/67 H 12/09/18 16:40 82 16 145/66 H 12/09/18 16:30 88 16 156/73 H 12/09/18 16:20 36.5 C 81 16 148/68 H 12/09/18 12:47 37.4 C 78 20 144/77 H 12/09/18 12:18 85 20 146/80 H 12/09/18 11:24 60 20 157/79 H 12/09/18 09:09 36.7 C 98 H 18 147/88 H Pulse Ox 12/10/18 06:54 97 12/10/18 04:15 100 12/09/18 23:18 97 12/09/18 21:01 100 12/09/18 20:00 99 12/09/18 18:57 99 12/09/18 18:25 98 12/09/18 18:12 97 12/09/18 17:40 96 12/09/18 17:30 96 12/09/18 17:20 97 12/09/18 17:10 97 12/09/18 17:00 98 12/09/18 16:50 97 12/09/18 16:40 98 12/09/18 16:30 99 12/09/18 16:20 98 12/09/18 12:47 96 12/09/18 12:18 97 12/09/18 11:24 94 12/09/18 09:09 97 Pain Intensity Right Anterior Medial Ankle: Pain Intensity: 5 Right Knee: Pain Intensity: 8 Notes Mental Status: alert / awake / arousable Patient Amnestic to Procedure: Yes Nausea / Vomiting: improving with treatment Pain: improving with treatment Airway Patency, RR, SpO2: stable & adequate BP & HR: stable & adequate Hydration State: stable & adequate Anesthetic Complications: no major complications apparent
[2018-12-10] MEDS ORDERED: MULTIVITAMIN TAB PO SCH (09:00)
[2018-12-10] MEDS ORDERED: RIVAROXABAN 10 MG TABLET PO SCH (09:00)
--- NOTE | 2018-12-10 10:24 | Hospitalist Progress Note ---
Date of Service December 10, 2018 Assessment & Plan (1) History of lower leg fracture: - S/p mechanical fall with fracture of distal tib/fib. - Orthopedics consulted, status post open reduction internal fixation of right tib fib fracture using intramedullary nail on 12/09, POD#1. - Pain control per primary team. - DVT ppx with Xarelto. - PT/OT ordered to evaluate for discharge planning. (2) Type 1 diabetes: - Has insulin pump at home, follows with outpatient endocrinology. - Last hemoglobin A1C was 8.7. - Continue insulin pump as inpatient. - Also consulted pharmacy for glycemic management. - Carb consistent, type I diet. (3) Acute anemia: - Hgb trending down, likely related to intra op blood loss. - Trend qAM. (4) DVT prophylaxis: - Xarelto BID. Dispo: Pt. is medically stable, will sign off. Please call with any questions. Supervising Physician Co-Signing Physician Notes Attending Attestation- Chart reviewed, care plan d/w TYLER Lackey. I agree w/ the hines components of her documentation. Type 1 diabetic on insulin pump at home with right tib-fib fracture s/p ORIF. Pharmacy managing T1DM. Mild acute blood loss anemia from his surgery. Vitals stable. Medicine to sign off. Adarsh Gonzalez MD Subjective Pt. is doing well overall. Has pain in left leg, well controlled. Denies chest pain, SOB, N/V. Has not had a BM in >24 hours. BG is well controlled with insulin pump, pharmacy consulted. Review of Systems Review of Systems: All systems reviewed & are unremarkable except as noted in HPI & below Constitutional: no fever, no chills, no fatigue, no weakness and no anorexia Respiratory: no cough, no dyspnea, no dyspnea on exertion and no wheezing Cardiovascular: no chest pain, no palpitations, no lightheadedness and no edema Gastrointestinal: + constipation; no abdominal pain, no nausea and no vomiting Genitourinary: no difficulty urinating Musculoskeletal: no back pain and no joint pain Integumentary: no non-healing lesions Allergy / Immunological: no rash Physical Exam Physical Exam: General: Resting comfortably in no apparent distress HEENT: NC/AT; PERRLA with EOMI; [place] conjunctiva, MMM. No erythema of posterior pharynx Neck: Supple and nontender Cardiac: RRR Lungs: CTA bilaterally Abdomen: Bowel normoactive X 4; Nontender to palpation Extremities: Warm. No edema present Neuro: No focal weakness Skin: No rash Results & Data Vital Signs (Past 12 Hours) Vital Signs Temp Pulse Resp BP Pulse Ox 12/10/18 06:54 36.8 C 71 18 140/80 97 12/10/18 04:15 37 C 75 18 134/83 100 12/09/18 23:18 37.0 C 62 14 128/71 97 Laboratory Results 12/10/18 12/10/18 12/10/18 Range/Units 08:05 06:10 06:10 WBC 10.97 H (4.8-10.8) K/uL RBC 4.32 L (4.7-6.1) M/uL Hgb 12.7 L D (14.0-18.0) g/dL Hct 35.5 L (42-52) % MCV 82.2 (80-100) fL MCH 29.4 (25-34) pg MCHC 35.8 (32-36) g/dL RDW Std Deviation 38.4 (36.4-46.3) fL RDW Coeff of Rosario 12.7 (11.5-14.5) % Plt Count 185 (130-400) K/uL MPV 8.7 (7.4-10.4) fL Sodium 137 (136-145) mmol/L Potassium 3.9 (3.5-5.1) mmol/L Chloride 104 (98-107) mmol/L Carbon Dioxide 28 (21-32) mmol/L Anion Gap 5.0 (3-11) BUN 14 (7-18) mg/dl Creatinine 1.06 (0.6-1.4) mg/dl Est Cr Clr Drug Dosing 119.0 ml/min Est GFR ( Amer) 112.5 Est GFR (Non-Af Amer) 97.1 BUN/Creatinine Ratio 12.9 (10-20) Glucose 170 H (70-99) mg/dl POC Glucose 166 H (70-99) Estimat Average Glucose mg/dl Hemoglobin A1c (4.5-5.6) % Calcium 7.9 L (8.5-10.1) mg/dl 12/10/18 12/10/18 12/10/18 Range/Units 04:03 02:09 00:12 WBC (4.8-10.8) K/uL RBC (4.7-6.1) M/uL Hgb (14.0-18.0) g/dL Hct (42-52) % MCV (80-100) fL MCH (25-34) pg MCHC (32-36) g/dL RDW Std Deviation (36.4-46.3) fL RDW Coeff of Rosario (11.5-14.5) % Plt Count (130-400) K/uL MPV (7.4-10.4) fL Sodium (136-145) mmol/L Potassium (3.5-5.1) mmol/L Chloride (98-107) mmol/L Carbon Dioxide (21-32) mmol/L Anion Gap (3-11) BUN (7-18) mg/dl Creatinine (0.6-1.4) mg/dl Est Cr Clr Drug Dosing ml/min Est GFR ( Amer) Est GFR (Non-Af Amer) BUN/Creatinine Ratio (10-20) Glucose (70-99) mg/dl POC Glucose 165 H 149 H 73 (70-99) Estimat Average Glucose mg/dl Hemoglobin A1c (4.5-5.6) % Calcium (8.5-10.1) mg/dl 12/09/18 12/09/18 12/09/18 Range/Units 22:26 20:59 19:58 WBC (4.8-10.8) K/uL RBC (4.7-6.1) M/uL Hgb (14.0-18.0) g/dL Hct (42-52) % MCV (80-100) fL MCH (25-34) pg MCHC (32-36) g/dL RDW Std Deviation (36.4-46.3) fL RDW Coeff of Rosario (11.5-14.5) % Plt Count (130-400) K/uL MPV (7.4-10.4) fL Sodium (136-145) mmol/L Potassium (3.5-5.1) mmol/L Chloride (98-107) mmol/L Carbon Dioxide (21-32) mmol/L Anion Gap (3-11) BUN (7-18) mg/dl Creatinine (0.6-1.4) mg/dl Est Cr Clr Drug Dosing ml/min Est GFR ( Amer) Est GFR (Non-Af Amer) BUN/Creatinine Ratio (10-20) Glucose (70-99) mg/dl POC Glucose 150 H 153 H 199 H (70-99) Estimat Average Glucose mg/dl Hemoglobin A1c (4.5-5.6) % Calcium (8.5-10.1) mg/dl 12/09/18 12/09/18 12/09/18 Range/Units 18:02 16:23 15:10 WBC (4.8-10.8) K/uL RBC (4.7-6.1) M/uL Hgb (14.0-18.0) g/dL Hct (42-52) % MCV (80-100) fL MCH (25-34) pg MCHC (32-36) g/dL RDW Std Deviation (36.4-46.3) fL RDW Coeff of Rosario (11.5-14.5) % Plt Count (130-400) K/uL MPV (7.4-10.4) fL Sodium (136-145) mmol/L Potassium (3.5-5.1) mmol/L Chloride (98-107) mmol/L Carbon Dioxide (21-32) mmol/L Anion Gap (3-11) BUN (7-18) mg/dl Creatinine (0.6-1.4) mg/dl Est Cr Clr Drug Dosing ml/min Est GFR ( Amer) Est GFR (Non-Af Amer) BUN/Creatinine Ratio (10-20) Glucose (70-99) mg/dl POC Glucose 254 H 225 H 161 H (70-99) Estimat Average Glucose mg/dl Hemoglobin A1c (4.5-5.6) % Calcium (8.5-10.1) mg/dl 12/09/18 12/09/18 12/09/18 Range/Units 14:05 12:40 09:18 WBC (4.8-10.8) K/uL RBC (4.7-6.1) M/uL Hgb (14.0-18.0) g/dL Hct (42-52) % MCV (80-100) fL MCH (25-34) pg MCHC (32-36) g/dL RDW Std Deviation (36.4-46.3) fL RDW Coeff of Rosario (11.5-14.5) % Plt Count (130-400) K/uL MPV (7.4-10.4) fL Sodium (136-145) mmol/L Potassium (3.5-5.1) mmol/L Chloride (98-107) mmol/L Carbon Dioxide (21-32) mmol/L Anion Gap (3-11) BUN (7-18) mg/dl Creatinine (0.6-1.4) mg/dl Est Cr Clr Drug Dosing ml/min Est GFR ( Amer) Est GFR (Non-Af Amer) BUN/Creatinine Ratio (10-20) Glucose (70-99) mg/dl POC Glucose 154 H 126 H (70-99) Estimat Average Glucose 203 mg/dl Hemoglobin A1c 8.7 H (4.5-5.6) % Calcium (8.5-10.1) mg/dl (1) Type 1 diabetes Diabetes mellitus complication status: without complication Qualified Code(s): E10.9 - Type 1 diabetes mellitus without complications
--- NOTE | 2018-12-10 14:52 | Orthopedic Progress Note ---
Date of Service December 10, 2018 Assessment & Plan (1) S/P ORIF (open reduction internal fixation) fracture: Non weight bearing on Right LE with aid crutches Ice with EZ wrap DVT prophy with Xarelto and TEDs Keep splint in place Pain control with PO meds F/u at [facility] in [address] Perry or Billy Zaragoza With questions call Subjective 23 yo M day 1 s/p intramedular jared fixation of Right distal tib/fib fracture. Pt is lying in bed with pain moderately controlled with PO meds. Did well with PT/OT this AM. He and feel that he is ready to be discharged home. Denies CP, SOB, nausea, vomiting, lethargy, fever, chills or sweats. Review of Systems Review of Systems: All systems reviewed & are unremarkable except as noted in HPI & below Physical Exam Physical Exam: Right LE: dressing/splint clean, dry and intact. Cap refill <2 seconds. NV intact. TTP over anterior lower leg. ROM at knee from 0-90 without difficulty. Mild quad atrophy. Unable to perform SLRT. Results & Data Vital Signs (Past 12 Hours) Vital Signs Temp Pulse Resp BP Pulse Ox Pulse Ox 12/10/18 12:15 36.6 C 78 16 155/89 H 98 12/10/18 10:19 98 12/10/18 06:54 36.8 C 71 18 140/80 97 12/10/18 04:15 37 C 75 18 134/83 100
--- NOTE | 2018-12-10 15:03 | Pharmacy Report ---
Glycemic Control Consultation - Date of Service December 10, 2018 - Scope Scope: Glycemic Pharmacist consulted by Dr Delcid on 12/09/18 for glycemic control and to write orders per [facility] inpatient glycemic control protocol - Objective Weight: 87.9 kg Accuchecks BSG (last 24hrs): 12/09/18 12/09/18 12/09/18 14:05 15:10 16:23 Glucose POC Glucose 154 H 161 H 225 H 12/09/18 12/09/18 12/09/18 18:02 19:58 20:59 Glucose POC Glucose 254 H 199 H 153 H 12/09/18 12/10/18 12/10/18 22:26 00:12 02:09 Glucose POC Glucose 150 H 73 149 H 12/10/18 12/10/18 12/10/18 04:03 06:10 08:05 Glucose 170 H POC Glucose 165 H 166 H Laboratory Data (last 24hrs): 12/10/18 06:10 Potassium 3.9 Carbon Dioxide 28 Anion Gap 5.0 Creatinine 1.06 Est Cr Clr Drug Dosing 119.0 HbA1c: 8.7 % (4.5-5.6) H 12/09/18 09:18 - Recent Pertinent Medications Outpatient Anti-diabetic Regimen: * Novolog Pump * A1c = 8.7 % 12/09/18 - Assessment & Plan Assessment & Plan: ASSESSMENT: * Mr. Morse is a type 1 diabetic s/p ORIF. He is maintained on an insulin pump as an outpt. BSGs while admitted have all been well controlled. Mentation was back to baseline yesterday, no indication to remove his pump in favor of an insulin gtt or basal/bolus. His diet continues. BSGs over the preceding 24hrs: [phone]. Spoke with orthopedics: BSGs closer to 120mg/dL should be targeted. They will reach out to endocrinology upon time of d/c. * I do not anticipate any acute fluctuations in insulin requirements at this time. PLAN FOR INPATIENT GLYCEMIC CONTROL: * Continue pump per settings. * Please note that the plan above was derived based on current level of insulin resistance and hospital stress. These recommendations are appropriate for inpatient admission only. Plan of care upon discharge will need to be reassessed to avoid potential outpatient hypo/hyperglycemia. Thank you.
--- NOTE | 2018-12-10 16:41 | Discharge Summary ---
Date of Service December 10, 2018 Admission HPI Per Admitting Provider This 23 yo M is seen in ED (B 10) after twisting his Right lower leg at work this AM, causing his injury. Patient is currently splinted and resting in bed with pain fairly well controlled. Last intake of solid food was 4:30-5:00 AM and last liquid intake was 7:00 AM. Denies CP, SOB, nausea, vomiting, fever, chills, sweats, lethargy, head or neck trauma. Has hist of Type I diabetes with insulin pump use. Last HgA1C on 03/22/18 was 11.1. There is also one pending today. Admission Exam Per Admitting Provider Eyes; PERRLA. EOM intact. Throat; posterior oropharynx clear without edema, erythema or exudate. Skin; normal in appearance without open skin areas or discharge. Cardiovascular; Regular rate and rhythm with absence of murmurs or gallops. Lungs; auscultation of lung lawson are clear with no wheezing, rales or rhonchi. Abdomen; non-obese, non-distended with normoactive bowel sounds. Neuro; CN II-XI intact with no motor / sensory deficit. General/Psych; A&O x 3 with proper grooming and hygiene. Right lower leg: leg splinted with air splint provided by EMS. Patient has appropriate dexterity of digits. Able to depict light sensation to touch on dorsal and plantar surface of the foot. Swelling and tenderness at distal 1/3 tibia with no skin lesions. Periph pulses easily palpable. Cap refill less than 2 seconds. ROM at knee or ankle not tested due to fracture. NV intact in entire Rt LE. Principal Diagnosis Closed fracture of Right distal Tibia / Fibula Discharge Exam Right LE: dressing/splint clean, dry and intact. Cap refill <2 seconds. NV intact. TTP over anterior lower leg. ROM at knee from 0-90 without difficulty. Mild quad atrophy. Unable to perform SLRT. Discharge Data Allergies Allergy/AdvReac Type Severity Reaction Status Date / Time latex AdvReac Rash Verified 12/09/18 20:03 Consultations 12/09/18 11:23 Consult Case Management - Discharge Planning Routine Consult Internal Medicine Routine 12/09/18 18:06 Consult Case Management - Discharge Planning Routine Procedures Performed Operation Date: 12/09/18 10:20 Actual Procedures p Open Reduction Internal Fixation Right Tibia-Fibula Fractures with Tibial Nail(Right) - Cuco Perry MD Ordered Studies 12/09/18 12:00 FL fluoroscopy <1hr Routine FL tibia/fibula RT 2V Routine Hospital Course (1) S/P ORIF (open reduction internal fixation) fracture: Patient did fairly well over night. Pain controlled with PO meds. BSG ranging from 130's-160's. Spoke with patient's [facility] Elizabeth PA-C. He will schedule appt with the patient later this week or early next week for f/u and help patient improve his glycemic index to allow for optimal fracture healing. Non weight bearing on Right LE with aid crutches Ice with EZ wrap DVT prophy with Xarelto and TEDs Keep splint in place Pain control with PO meds F/u at [facility] in [address] Perry or Billy Zaragoza (appt scheduled for next Sunday at 1:30) With questions call Total Time Total Time Spent Total Time Spent (In Minutes): 25 mins Total Time Includes: Examination of the Patient, Discharge Planning, Medication Reconciliation and Communication With Other Providers Discharge Plan Discharge Items Patient Disposition: Home - Self-Care Reason For Visit: CLOSED RIGHT TIBULA/FIBULA FRACTURE Discharge Diagnosis: Closed right tibia/fibula fracture Discharge Goals: Decrease discomfort, Improve function and Increase independence Activity: As commented below Lifting: None Bathing: Keep incision dry Bathing Comment: May shower tomorrow Sexual Activity: Wait until after follow-up appointment Exercise/Sports: Wait until after follow-up appointment Driving/Machine Use Comment: no driving until cleared by orthropedic specialist Weightbearing: Right non-weightbearing Weightbearing Comment: with splint in place with aid of crutches Non-emergency contact: Primary Care Provider Call non-emergency contact if: you have any medication questions, your pain is not controlled, your temperature is above 101.5, your wound has increased drainage and your wound pain has increased Follow-up/Referrals: PCP,NO [Primary Care Provider] - Diet: Carb Count or DM1 Addtl Provider Instructions: Post-operative Instructions Dear Patient and Family/Friends, Before you are discharged from the hospital, it is important to know what to expect when you get home after surgery. To that end, we have created this sheet of discharge instructions which covers many commonly asked questions. Make sure you go through this sheet in its entirety with your nurse before you are discharged. Please note that we will go over the specifics of your surgery and recovery when you return for your first post-operative visit. Sincerely, Dr. Perry Medication You will be discharged with prescriptions for Oxycodone for pain control and Xarelto for prevention of blood clots. I would also like you to purchase OTC Extra Strength Tylenol for additional pain control. You can take 1-2 Oxycodone tabs (5mg) every 4-6 hrs for pain control. You may take 2 extra strength Tylenol with every other dose of the Oxy. The Xarelto (10mg) is to be taken daily for 3 weeks then switch to 81 mg Aspirin (2 tabs) for 3 additional weeks for DVT/Embolism prevention. Pain Expect to be in a fair amount of pain after surgery. Remember, our goal is not to eliminate your pain, but to make it tolerable. It is a good idea to stay ahead of your pain by taking the medications you were prescribed once you get home. Typically, the pain starts improving 3-7 days after surgery. You should start weaning off the narcotic pain medication (oxycodone, hydrocodone, hydromorphone, morphine) as soon as your pain improves. Please call our office if your pain is not adequately controlled. Ice Ice your operative site at least 5 times a day for 15-30 minutes at a time. Make sure you have a thin cloth between the ice or cooling unit and your skin to prevent bowser bite. This is especially important if you received a nerve block. Continue icing your operative site for the first 5-7 days after surgery, then as needed. Diet/Nausea/Vomiting Start by drinking clear liquids and eating crackers. If you can tolerate this, then you may resume your normal diet. If you feel nauseated or vomit, take Zofran/ondansetron (if prescribed). Please call our office if you have intractable nausea or vomiting, or, if after hours, you may go to the Emergency Room for help. Constipation Constipation is a common side effect of narcotic pain medication. If you have not had a bowel movement within 2 days after surgery, we recommend purchasing an over the counter laxative such as Milk of Magnesia, Dulcolax, or Miralax from a local pharmacy, and taking it as instructed. Call our clinic if any questions. Slings and Braces If you were placed in a sling or brace, it must be worn at all times, including sleep. You may remove your sling or brace for physical therapy, home exercises, and showering. The length of time you will be in your brace and range of motion restrictions depends on what surgery you had; these details will be reviewed at your first post-operative appointment. Weight bearing and Range of Motion. Do not bear any weight through your operative extremity immediately after surgery. If you had upper extremity surgery, do not lift anything with that arm. If you are in a knee brace, keep it locked in place until your follow-up. We will discuss your weight bearing, range of motion, and lifting restrictions in detail at your first post-operative appointment. Continuous Passive Motion (CPM) Machine If you were prescribed a CPM machine, it will start after your first post- operative appointment, at which time we will give you instructions on the range of motion settings and duration of treatment Physical therapy You will be given a prescription for physical therapy or occupational therapy at your first post-operative appointment. Typically, patients start therapy within 1 week of surgery Wound care and showering We will inspect your wound at your first post-operative visit, and may do a dressing change at that time. Most patients will be in a water-proof dressing that is removed 14 days after surgery. It is normal to see some dried blood on the dressing. Do not remove your dressing, paper strips or sutures yourself unless you are given permission. Showering is allowed the day after surgery. Do not scrub or remove any dressings. The wound should not be submerged underwater (i.e. in a bathtub or pool) until 4 weeks after surgery KANCHAN stockings If you were given white stockings, these are to be worn at all times except to shower (on both legs) for the first 2 weeks after surgery. Driving You may not drive while taking narcotic pain medication or while in a cast, splint, sling or brace. You, the patient, need to make the final determination about when you are safe to drive, however, the earliest you may consider driving after surgery is below: Hand/Wrist/Elbow Surgery: 3 days Shoulder Surgery: 2 weeks Hip,/Knee/Ankle Surgery: 4 weeks Fracture repair: 6 weeks Return to Work Your return to work depends on what surgery was done and what type of work you do. Please bring any paperwork your employer needs completed to your first post-operative visit. Also, bring a description of your job duties, as this helps us to understand what risks you may face at work. Travel Avoid long distance travel (greater than 1 hour) in airplanes and cars for the first 6 weeks after surgery. If you must travel, you need to have a Doppler ultrasound done before you travel to rule out a blood clot in your legs. Follow-up You should have a follow-up appointment already scheduled 1-2 days after surgery. If not, please contact our office to make this appointment before you leave the hospital. When to call the office It is normal to have swelling and bruising in the limb that was operated on. This will improve with time. It is also normal to have fevers for the first 2 days after surgery. Reasons you should call your doctor include: Uncontrolled pain; Nausea, vomiting, or constipation that does not improve with medication; Fevers over 101.5, chills, sweats; Drainage or bleeding from the wound; Foul odor; Spreading areas of redness; Any other concerns Prescriptions: New Xarelto 10 mg tablet 10 mg PO DAILY 21 Days Qty: 21 RF: 0 oxycodone 5 mg tablet 5 mg PO .4-6 hrs MDD May take 1-2 tabs q 4-6 hrs PRN (Reason: pain) Qty: 30 RF: 0 Continued Novolog U-100 Insulin aspart 100 unit/mL solution 100 unit continuous subcutaneous infusion .INSULIN PUMP RF: 0 Stand-Alone Forms: [facility] Discharge Orders: Discharge Order (Routine); Ordered 12/10/18 Ordered By: David Zaragoza Admission Data Admit Date/Time: 12/09/18 18:06 Attending Provider: Cuco Perry Admit Provider: Cuco Perry Primary Care Provider: PCP,NO Other Providers: Adarsh Gonzalez Service: Surgical Services Other Interventions: Discharge Summary Assessment (RN) Last Done: 12/10/18 16:01 Pending Studies at Discharge: No
== END 2018-12-10 17:36 | disposition home or self-care (01) | DRG 494 ==
LOC: ED 08:53 → 3E 11:24
DX: Y92.89 Other specified places as the place of occurrence of the external cause; Z96.41 Presence of insulin pump (external) (internal); E10.9 Type 1 diabetes mellitus without complications; Z91.040 Latex allergy status; S82.391A Other fracture of lower end of right tibia, initial encounter for closed fracture; S82.831A Other fracture of upper and lower end of right fibula, initial encounter for closed fracture; W22.8XXA Striking against or struck by other objects, initial encounter; Z79.4 Long term (current) use of insulin

== ENCOUNTER 2020-11-27 14:10 | Inpatient (IN) ==
[2020-11-27] MEDS ORDERED: SODIUM CHLORIDE 0.9% 500 ML IV STA (14:29)
[2020-11-27 14:43] LABS: Hematocrit (blood only) 49.3 % (42-52); Hemoglobin 17.5 g/dL (14.0-18.0); Mean Corpuscular Hemoglobin 30.3 pg (25-34); Mean Corpuscular Hgb Conc 35.5 g/dL (32-36); Mean Corpuscular Volume 85.4 fL (80-100); Mean Platelet Volume 9.3 fL (7.4-10.4); Platelet Count 305 K/uL (130-400); RDW Coefficient of Variation 12.5 % (11.5-14.5); RDW Standard Deviation 38.8 fL (36.4-46.3); Red Blood Count 5.77 M/uL (4.7-6.1); White Blood Count 18.24 K/uL (4.8-10.8)
[2020-11-27] MEDS ORDERED: PROMETHAZINE 6.25 MG/50.25 ML BAG IV STA (14:55)
[2020-11-27] MEDS ORDERED: SODIUM CHLORIDE 0.9% 1000ML 1,000 ML IV ONE ×2 (14:55→15:00)
[2020-11-27] MEDS ORDERED: diphenhydrAMINE 50 MG/ML VIAL IV STA (14:55)
[2020-11-27] MEDS ORDERED: ONDANSETRON INJ 2 MG/ML 2 ML VIAL IV STA (14:55)
--- NOTE | 2020-11-27 15:03 | Emergency Department Note ---
Impression & Plan DKA (diabetic ketoacidoses), YANE (acute kidney injury), Acute hyperkalemia, Vomiting ED Provider Note NAME: BHUPENDRA LUCAS AGE: 25 SEX: M : 1995 ARRIVES VIA: Walk-In INFORMANT: [Patient][family] ED PROVIDER(S): [Joon Jernigan MD] CHIEF COMPLAINT: Illness HISTORY OF PRESENT ILLNESS: The patient is a 25-year-old male who states that his blood sugars have been higher for about 2 days. Last night, he felt weak and tired. This morning, he felt the same and then began vomiting on the way to work. He is concerned that he may be in DKA. There have been no Covid exposures. He has had a slight cough but no fever. No stuffy nose or sore throat, no abdominal pain. No urinary complaints. The patient did drain a small lesion on the right medial thigh that he thought may have been the start of an infection from his insulin pump. The area appears to be improving. The patient believes he might be in DKA, it has been years since he was diagnosed with this but, he feels similar to back then. REVIEW OF SYSTEMS: See HPI for pertinent positives and negatives. A total of ten systems were reviewed and were otherwise negative. PMHx/PSHx: See Below SOCIAL HISTORY: See Below. PHYSICAL EXAM: GENERAL: Patient is in mild distress, actively vomiting. HEENT: No acute trauma, normocephalic atraumatic, mucous membranes moist, no nasal congestion, no scleral icterus. NECK: No stridor, no adenopathy, no meningismus, trachea is midline. LUNGS: Clear to auscultation bilaterally, no wheeze, no rhonchi, breath sounds equal. HEART: Without murmurs gallops or rubs, regular rate and rhythm. ABDOMEN: Soft, nontender, bowel sounds positive, no hernias, no peritonitis. EXTREMITIES: No cyanosis or edema, full range of motion of all the joints without pain or difficulty, no signs for acute trauma. NEUROLOGIC: Oriented x 3, no acute motor or sensory deficits, no focal weakness. SKIN: Patient has several areas of induration from his previous insulin pump needles. They are firm, not warm and not erythematous. 1 of these lesions is located to the medial aspect of the mid right thigh, a second is noted to the medial aspect of the mid left thigh. No fluctuance in either lesion. DIFFERENTIAL DIAGNOSIS: Infection, dehydration, metabolic abnormality, hypo/hyperglycemia, DKA, UTI, foodborne or viral illness, electrolyte disturbance, anemia, hypoxia, cardiac sources, intracerebral event, toxicologic issues, as well as other pathologies. EMERGENCY DEPARTMENT COURSE/PROCEDURES: ECG: Indication was weakness. The ECG shows a normal sinus rhythm with a rate of 78. The QTc is 451. There is no ST elevation, no PVCs. Continuous Cardiac Monitoring: An order was placed for continuous cardiac monitoring. The monitor shows a rate of 85 with normal sinus rhythm. Critical Care Note: I have personally spent 45 minutes of critical care time in the direct management of this patient. This includes bedside care, interpretation of diagnostic studies, and testing, discussion with consultants, patient, and family members, and other required patient management activities. This 45 minutes is in excess of all separately billable procedures. MEDICAL DECISION MAKING: There is a moderate leukocytosis of 18,000, this could be consistent with infection or just his vomiting. There is a normal hemoglobin and platelet count. VBG does show a mild acidosis with a pH of 7.21. Renal panel testing shows a lower sodium and a sugar over 400. There was some acute kidney injury with a creatinine of 1.51. There was an anion gap and the patient was slightly hyperkalemic with a potassium of 5.2. No worrisome liver enzyme elevation. No evidence for pancreatitis. ECG shows a normal sinus rhythm, no acute ischemia. Cardiac enzyme testing x1 is not consistent with acute cardiac injury. Covid and influenza testing returned negative. Urinalysis result is still pending. Chest film showed some atelectasis. No obvious pneumonia. On exam, the patient was not febrile, he was vomiting during my evaluation. The patient received 2.5 L of IV saline. He was eventually placed on a D5 half- normal saline drip with potassium. He received IV Zofran, IV Benadryl and IV Phenergan. He was given a bolus of IV insulin and then placed on an insulin drip. The patient is resting. He seems improved. He is going to require a hospital stay for his DKA. The cause for the DKA is unclear. I did not find a clear jeevan rce for infection by exam or by work-up. I spoke to the patient, I talked to case management. The on-call hospitalist was consulted. Past Med/Surg History Medical History Azoospermia Diabetes mellitus Infertility Surgical History (Updated 01/16/20 @ 18:16 by Kelby Staples MD) Hx of oral surgery S/P ORIF (open reduction internal fixation) fracture Tibia/fibula fracture Family History (Updated 11/04/19 @ 08:36 by Cuco Dixon MD) Mother Hypertension Father Hypertension Social History Smoking Status: Never smoker Hx Alcohol Use: Yes Alcohol type: beer Hx Substance Use: No Preferred Language: Bermudian Communication Ability: Effective Manager Corporate Strategy Required: No Beliefs That Will Affect Care: None Current Living Situation: Spouse current occupational status: employed Other Information That Helps Us Care for You: No Feels Safe at Home: Yes Safety Concerns: Feels Safe At This Time Assistive Devices: None Allergies Allergies Allergy/AdvReac Type Severity Reaction Status Date / Time adhesive tape AdvReac Unknown Unknown Verified 11/27/20 19:58 latex AdvReac Rash Verified 11/27/20 15:02 Home Meds Home Medications Medication Instructions Recorded Confirmed glucagon (human recombinant) 1 mg See Rx Instructions .ROUTE 06/25/19 11/27/20 solution for injection .COMPLEX PRN insulin pump syringe 3 mL ea 08/11/19 10/29/20 blood sugar diagnostic ea 10/29/20 Previous Rx's Medication Instructions Recorded Guardian Sensor 3 #30 ea NS 07/07/19 Quick-Set Paradigm #30 ea NS 07/07/19 Novolog U-100 Insulin aspart 100 150 unit CONTINUOUS SUBCUTANEOUS 08/18/20 unit/mL subcutaneous solution INFUSION DAILY 90 Days #140 ml NS Results & Data (ED) Vital Signs Vital Signs - 24 hr 11/27/20 14:15 11/27/20 14:31 11/27/20 15:00 Temperature 36.5 C Temperature Source Skin Pulse Rate 87 75 80 Pulse Rate from SpO2 Sensor Respiratory Rate 18 14 16 Respiratory Effort / Characteristics Non-Labored Spontaneous Respiratory Depth Normal Blood Pressure 133/78 141/77 H Blood Pressure Mean 96 98 Blood Pressure Position Sitting Pulse Oximetry 97 98 96 Oxygen Delivery Method Room Air Sepsis Recent Fever Within 48 Hours No Sepsis New/Unexplained Change in Mental Status N/A Sepsis Action Taken by Nursing No Action Required 11/27/20 15:11 11/27/20 15:30 11/27/20 16:00 Temperature Temperature Source Pulse Rate 85 78 74 Pulse Rate from SpO2 Sensor 83 77 74 Respiratory Rate 22 Respiratory Effort / Characteristics Respiratory Depth Blood Pressure 133/73 109/56 L 119/61 Blood Pressure Mean 93 73 80 Blood Pressure Position Pulse Oximetry 99 99 99 Oxygen Delivery Method Sepsis Recent Fever Within 48 Hours Sepsis New/Unexplained Change in Mental Status Sepsis Action Taken by Nursing 11/27/20 16:30 11/27/20 17:00 11/27/20 17:30 Temperature Temperature Source Pulse Rate 74 75 83 Pulse Rate from SpO2 Sensor 74 76 Respiratory Rate 16 Respiratory Effort / Characteristics Respiratory Depth Blood Pressure 118/63 117/62 112/61 Blood Pressure Mean 81 80 78 Blood Pressure Position Pulse Oximetry 98 98 Oxygen Delivery Method Sepsis Recent Fever Within 48 Hours Sepsis New/Unexplained Change in Mental Status Sepsis Action Taken by Intermediate Medications Current Medication List: was personally reviewed by me Laboratory Data Attestation: I reviewed the patient's lab results. Result diagrams: 11/27/20 14:30 11/27/20 14:30 Lab Results 11/27/20 11/27/20 11/27/20 Range/Units 14:30 14:30 15:09 WBC 18.24 H (4.8-10.8) K/uL RBC 5.77 (4.7-6.1) M/uL Hgb 17.5 (14.0-18.0) g/dL Hct 49.3 (42-52) % MCV 85.4 (80-100) fL MCH 30.3 (25-34) pg MCHC 35.5 (32-36) g/dL RDW Std Deviation 38.8 (36.4-46.3) fL RDW Coeff of Rosario 12.5 (11.5-14.5) % Plt Count 305 (130-400) K/uL MPV 9.3 (7.4-10.4) fL Immature Gran % (Auto) 0.5 % Neut % (Auto) 86.1 % Lymph % (Auto) 6.8 % Lasalle % (Auto) 6.3 % Eos % (Auto) 0.2 % Baso % (Auto) 0.1 % Neut # (Auto) 15.70 H (1.4-6.5) K/uL Lymph # (Auto) 1.24 (1.2-3.4) K/uL Lasalle # (Auto) 1.14 H (0.11-0.59) K/uL Eos # (Auto) 0.04 (0-0.5) K/uL Baso # (Auto) 0.02 (0-0.2) K/uL Immature Gran # (Auto) 0.10 H (0.00-0.02) K/uL VBG pH 7.21 L (7.36-7.41) VBG pCO2 45 (38-50) mmHg VBG pO2 38 mmHg VBG HCO3 17 mmol/L VBG O2 Saturation 67.0 % VBG Base Excess -10.3 mEq/L Barometric Pressure 730.8 mm/Hg Sodium 132 L (136-145) mmol/L Potassium 5.2 H (3.5-5.1) mmol/L Chloride 100 (98-107) mmol/L Carbon Dioxide 19 L (21-32) mmol/L Anion Gap 13.0 H (3-11) BUN 30 H (7-18) mg/dl Creatinine 1.51 H (0.6-1.4) mg/dl Est Cr Clr Drug Dosing 75.9 ml/min Est GFR ( Amer) 72.3 Est GFR (Non-Af Amer) 62.4 BUN/Creatinine Ratio 19.9 (10-20) Glucose 424 H* (70-99) mg/dl POC Glucose (70-99) mg/dl Calcium 9.6 (8.5-10.1) mg/dl Magnesium 2.2 (1.8-2.4) mg/dl Total Bilirubin 0.9 (0.2-1) mg/dl AST 16 (15-37) U/L ALT 20 (12-78) U/L Alkaline Phosphatase 146 H (45-117) U/L Troponin I < 0.015 (0-0.045) ng/ml Total Protein 8.6 H (6.4-8.2) gm/dl Albumin 4.7 (3.4-5.0) gm/dl Globulin 3.9 (2.5-4.0) gm/dl Albumin/Globulin Ratio 1.2 (0.9-2) Lipase 63 L (73-393) U/L Beta-Hydroxybutyric Acd 66.37 H (0.2-2.81) mg/dl Specimen Hemolysis COVID-19 Eval Order SARS-CoV-2 (PCR) (Negative) Influenza Type A (PCR) (Neg) Influenza Type B (PCR) (Neg) RSV (RT-PCR) (Neg) 11/27/20 11/27/20 11/27/20 Range/Units 16:09 16:13 17:05 WBC (4.8-10.8) K/uL RBC (4.7-6.1) M/uL Hgb (14.0-18.0) g/dL Hct (42-52) % MCV (80-100) fL MCH (25-34) pg MCHC (32-36) g/dL RDW Std Deviation (36.4-46.3) fL RDW Coeff of Rosario (11.5-14.5) % Plt Count (130-400) K/uL MPV (7.4-10.4) fL Immature Gran % (Auto) % Neut % (Auto) % Lymph % (Auto) % Lasalle % (Auto) % Eos % (Auto) % Baso % (Auto) % Neut # (Auto) (1.4-6.5) K/uL Lymph # (Auto) (1.2-3.4) K/uL Lasalle # (Auto) (0.11-0.59) K/uL Eos # (Auto) (0-0.5) K/uL Baso # (Auto) (0-0.2) K/uL Immature Gran # (Auto) (0.00-0.02) K/uL VBG pH (7.36-7.41) VBG pCO2 (38-50) mmHg VBG pO2 mmHg VBG HCO3 mmol/L VBG O2 Saturation % VBG Base Excess mEq/L Barometric Pressure mm/Hg Sodium (136-145) mmol/L Potassium (3.5-5.1) mmol/L Chloride (98-107) mmol/L Carbon Dioxide (21-32) mmol/L Anion Gap (3-11) BUN (7-18) mg/dl Creatinine (0.6-1.4) mg/dl Est Cr Clr Drug Dosing ml/min Est GFR ( Amer) Est GFR (Non-Af Amer) BUN/Creatinine Ratio (10-20) Glucose (70-99) mg/dl POC Glucose 312 H* 334 H* (70-99) mg/dl Calcium (8.5-10.1) mg/dl Magnesium (1.8-2.4) mg/dl Total Bilirubin (0.2-1) mg/dl AST (15-37) U/L ALT (12-78) U/L Alkaline Phosphatase (45-117) U/L Troponin I (0-0.045) ng/ml Total Protein (6.4-8.2) gm/dl Albumin (3.4-5.0) gm/dl Globulin (2.5-4.0) gm/dl Albumin/Globulin Ratio (0.9-2) Lipase (73-393) U/L Beta-Hydroxybutyric Acd (0.2-2.81) mg/dl Specimen Hemolysis COVID-19 Eval Order [facility]FluRsv at [facility] SARS-CoV-2 (PCR) (Negative) Influenza Type A (PCR) (Neg) Influenza Type B (PCR) (Neg) RSV (RT-PCR) (Neg) 11/27/20 11/27/20 Range/Units 17:05 17:14 WBC (4.8-10.8) K/uL RBC (4.7-6.1) M/uL Hgb (14.0-18.0) g/dL Hct (42-52) % MCV (80-100) fL MCH (25-34) pg MCHC (32-36) g/dL RDW Std Deviation (36.4-46.3) fL RDW Coeff of Rosario (11.5-14.5) % Plt Count (130-400) K/uL MPV (7.4-10.4) fL Immature Gran % (Auto) % Neut % (Auto) % Lymph % (Auto) % Lasalle % (Auto) % Eos % (Auto) % Baso % (Auto) % Neut # (Auto) (1.4-6.5) K/uL Lymph # (Auto) (1.2-3.4) K/uL Lasalle # (Auto) (0.11-0.59) K/uL Eos # (Auto) (0-0.5) K/uL Baso # (Auto) (0-0.2) K/uL Immature Gran # (Auto) (0.00-0.02) K/uL VBG pH (7.36-7.41) VBG pCO2 (38-50) mmHg VBG pO2 mmHg VBG HCO3 mmol/L VBG O2 Saturation % VBG Base Excess mEq/L Barometric Pressure mm/Hg Sodium (136-145) mmol/L Potassium (3.5-5.1) mmol/L Chloride (98-107) mmol/L Carbon Dioxide (21-32) mmol/L Anion Gap (3-11) BUN (7-18) mg/dl Creatinine (0.6-1.4) mg/dl Est Cr Clr Drug Dosing ml/min Est GFR ( Amer) Est GFR (Non-Af Amer) BUN/Creatinine Ratio (10-20) Glucose (70-99) mg/dl POC Glucose 289 H (70-99) mg/dl Calcium (8.5-10.1) mg/dl Magnesium (1.8-2.4) mg/dl Total Bilirubin (0.2-1) mg/dl AST (15-37) U/L ALT (12-78) U/L Alkaline Phosphatase (45-117) U/L Troponin I (0-0.045) ng/ml Total Protein (6.4-8.2) gm/dl Albumin (3.4-5.0) gm/dl Globulin (2.5-4.0) gm/dl Albumin/Globulin Ratio (0.9-2) Lipase (73-393) U/L Beta-Hydroxybutyric Acd (0.2-2.81) mg/dl Specimen Hemolysis COVID-19 Eval Order SARS-CoV-2 (PCR) NEGATIVE (Negative) Influenza Type A (PCR) Negative (Neg) Influenza Type B (PCR) Negative (Neg) RSV (RT-PCR) Negative (Neg) Administered Medications Insulin Human Regular 250 (units/ Sodium Chloride) 250 mls @ 10 mls/hr IV .Q24H [facility]; Protocol Stop: 12/27/20 16:44 Last Titration: 11/27/20 20:37 Dose: 10 units/hr, 10 mls/hr Documented by: [id number] Cosigned by: [id number] Titration: 11/27/20 19:35 Dose: 10 units/hr, 10 mls/hr Documented by: [id number] Cosigned by: [id number] Titration: 11/27/20 18:31 Dose: 8.3 units/hr, 8.3 mls/hr Documented by: [id number] Cosigned by: [id number] Admin: 11/27/20 17:25 Dose: 8.3 units/hr, 8.3 mls/hr Documented by: [id number] Cosigned by: [id number] Potassium Chloride/Dextrose/Sod Cl (D5w And 1/2nss + 20meq Kcl) 20 meq in 1,000 mls @ 150 mls/hr IV .Q6H40M [facility] Stop: 12/27/20 17:44 Last Admin: 11/27/20 17:41 Dose: 150 mls/hr Documented by: [id number] Cefazolin Sodium (Ancef 1000mg) 1,000 mg in 7.5 mls @ 2.5 mls/min IV Q8H [facility] Stop: 12/04/20 19:59 Last Admin: 11/27/20 20:12 Dose: 2.5 mls/min Documented by: [id number] Discontinued Medications Diphenhydramine HCl (Diphenhydramine 50 Mg/Ml Vial) 12.5 mg IV NOW STA Stop: 11/27/20 14:56 Last Admin: 11/27/20 15:07 Dose: 12.5 mg Documented by: [id number] Sodium Chloride (Nss) 500 mls @ 999 mls/hr IV .Q31M STA Stop: 11/27/20 14:59 Last Admin: 11/27/20 14:32 Dose: Not Given Documented by: [id number] Sodium Chloride (Nss 1000ml) 1,000 mls @ 200 mls/hr IV .Q5H ONE Stop: 11/27/20 19:59 Last Infusion: 11/27/20 15:31 Dose: 0 mls/hr Documented by: [id number] Admin: 11/27/20 14:32 Dose: 999 mls/hr Documented by: [id number] Promethazine HCl (Phenergan) 6.25 mg in 50.25 mls @ 201 mls/hr IV NOW STA Stop: 11/27/20 15:09 Last Infusion: 11/27/20 15:32 Dose: 0 mls/hr Documented by: [id number] Admin: 11/27/20 15:07 Dose: 201 mls/hr Documented by: [id number] Sodium Chloride (Nss 1000ml) 1,000 mls @ 999 mls/hr IV .Q1H1M ONE Stop: 11/27/20 15:55 Last Infusion: 11/27/20 16:09 Dose: 0 mls/hr Documented by: [id number] Admin: 11/27/20 15:08 Dose: 999 mls/hr Documented by: [id number] Sodium Chloride (Nss 1000ml) 500 mls @ 999 mls/hr IV .Q31M ONE Stop: 11/27/20 17:06 Last Infusion: 11/27/20 17:55 Dose: 0 mls/hr Documented by: [id number] Admin: 11/27/20 17:24 Dose: 999 mls/hr Documented by: [id number] Insulin Human Regular (Novolin-R Insulin Per Unit Charge) 10 units IV NOW STA Stop: 11/27/20 15:28 Last Admin: 11/27/20 15:34 Dose: 10 units Documented by: [id number] Cosigned by: [id number] Ondansetron HCl (Ondansetron Inj 2 Mg/Ml 2 Ml Vial) 4 mg IV NOW STA Stop: 11/27/20 14:56 Last Admin: 11/27/20 15:07 Dose: 4 mg Documented by: [id number] Imaging Data Radiologist's Impression: Chest X-Ray 11/27/20 14:30 XR chest 1V portable CLINICAL HISTORY: DKA COMPARISON STUDY: No previous studies for comparison. FINDINGS: Lung volumes are mildly diminished. There is no pneumothorax or pleural effusion. No consolidation is identified. There is apparent lower lung interstitial thickening. Cardiac size is normal. Mediastinal contours are normal. IMPRESSION: Lower lung interstitial thickening which likely reflects pulmonary vessels or atelectasis on this hypoventilatory study although an infectious process could appear similar. ACT 112: Negative or not required by law. Electronically signed by: Chin Carlson M.D. 11/27/2020 4:09 PM Discharge Plan Visit Data Chief Complaint: Illness Stated Complaint: ILLNESS ED Provider: Joon Jernigan Discharge Problem: DKA (diabetic ketoacidoses), YANE (acute kidney injury), Acute hyperkalemia, Vomiting Patient Disposition: Admitted As Inpatient Condition: Fair Discharge Instructions Interventions: ED Discharge Assessment Last Done: 11/27/20 18:42 Discharge Problem: DKA (diabetic ketoacidoses) Qualifiers: Diabetes mellitus type: type 1 Diabetes mellitus complication detail: without coma Qualified Code(s): E10.10 - Type 1 diabetes mellitus with ketoacidosis without coma Vomiting Qualifiers: Vomiting type: unspecified Vomiting Intractability: non-intractable Nausea presence: with nausea Qualified Code(s): R11.2 - Nausea with vomiting, unspecified
[2020-11-27 15:14] LABS: Basophils # (auto) 0.02 K/uL (0-0.2); Basophils % (auto) 0.1 %; Eosinophils # (auto) 0.04 K/uL (0-0.5); Eosinophils % (auto) 0.2 %; Immature Granulocytes % (auto) 0.5 %; Lymphocytes # (auto) 1.24 K/uL (1.2-3.4); Lymphocytes % (auto) 6.8 %; Monocytes # (auto) 1.14 K/uL (0.11-0.59); Monocytes % (auto) 6.3 %; Neutrophils % (auto) 86.1 %
[2020-11-27 15:25] LABS: Alanine Aminotransferase 20 U/L (12-78); Albumin Globulin Ratio 1.2 (0.9-2); Albumin Level 4.7 gm/dl (3.4-5.0); Alkaline Phosphatase 146 U/L (45-117); Aspartate Aminotransferase 16 U/L (15-37); BUN Creatinine Ratio 19.9 (10-20); Bilirubin,Total 0.9 mg/dl (0.2-1); Blood Urea Nitrogen 30 mg/dl (7-18); Calcium 9.6 mg/dl (8.5-10.1); Carbon Dioxide 19 mmol/L (21-32); Chloride 100 mmol/L (98-107); Creatinine Clr Calc Pharmacy 75.9 ml/min; Est GFR (African American) 72.3; Est GFR (Non-African American) 62.4; Globulin 3.9 gm/dl (2.5-4.0); Glucose 424 mg/dl (70-99); Lipase 63 U/L (73-393); Potassium 5.2 mmol/L (3.5-5.1); Sodium 132 mmol/L (136-145); Total Protein 8.6 gm/dl (6.4-8.2); Troponin I < 0.015 ng/ml (0-0.045)
[2020-11-27] MEDS ORDERED: NovoLIN-R INSULIN PER UNIT CHARGE IV STA (15:27)
[2020-11-27 15:34] LABS: Base Excess VBG -10.3 mEq/L; pH VBG 7.21 (7.36-7.41)
[2020-11-27 15:43] LABS: Magnesium 2.2 mg/dl (1.8-2.4)
[2020-11-27 16:00] LABS: Beta-Hydroxybutyrate 66.37 mg/dl (0.2-2.81)
--- NOTE | 2020-11-27 16:10 | XRay Report ---
XR chest 1V portable CLINICAL HISTORY: DKA COMPARISON STUDY: No previous studies for comparison. FINDINGS: Lung volumes are mildly diminished. There is no pneumothorax or pleural effusion. No consol idation is identified. There is apparent lower lung interstitial thickening. Cardiac size is normal. Mediastinal contours are normal. IMPRESSION: Lower lung interstitial thickening which likely reflects pulmonary vessels or atelectasi s on this hypoventilatory study although an infectious process could appear similar. ACT 112: Negative or not required by law. Electronically signed by: Chin Carlson M.D. 11/27/2020 4:09 PM
[2020-11-27] MEDS ORDERED: SODIUM CHLORIDE 0.9% 1000ML 500 ML IV ONE (16:36)
[2020-11-27] MEDS ORDERED: ED DKA INSULIN DRIP ONE (16:37)
[2020-11-27] MEDS ORDERED: GLUCAGON FOR INJ 1 MG VIAL SQ PRN (16:37)
[2020-11-27] MEDS ORDERED: CARBOHYDRATES FOR HYPOGLYCEMIA PO PRN (16:37)
[2020-11-27] MEDS ORDERED: STAT IV Infusion **Titration per Protocol STA (16:37)
[2020-11-27] MEDS ORDERED: GLUCOSE 10 TABS/TUBE PO PRN (16:37)
[2020-11-27] MEDS ORDERED: GLUCOSE 40% GEL 15 GM TUBE PO PRN (16:37)
[2020-11-27] MEDS ORDERED: DKA GOAL RANGE 150-250 mg/dl ONE (16:37)
[2020-11-27] MEDS ORDERED: INSULIN REGULAR 250 UNITS in SODIUM CHLORIDE 0.9% 247.5 ML IV SCH (16:45)
--- NOTE | 2020-11-27 17:39 | History & Physical Report ---
Date of Service November 27, 2020 Assessment & Plan (1) DKA (diabetic ketoacidoses): - Admit to monitored bed - Patient is being started on an insulin drip now. He received 10 units of IV regular insulin in the emergency room - Hydrate patient as per protocol, may require IV dextrose if blood sugars drop further - Blood sugars are now down to the high 200s, can change to D5W until anion gap closes - Start with clear liquids, can advance as tolerated once acute symptoms have resolved. - Patient will likely need better control as hemoglobin A1c is elevated, can follow with endocrinology (2) Furuncle: - Small localized infection, although concerning with concomitant DKA this may be the inciting event - We will start IV Ancef, monitor for improvement. Consider changing over to oral antibiotics once patient's nausea and vomiting are improved - No drainage from wound available to culture (3) Dyslipidemia: Continue oral medications as patient has recovered from his nausea vomiting. History of Present Illness Primary Care Provider: NO PCP This is a 25-year-old male with past medical history of type 1 diabetes mellitus on insulin pump the presents today complaining of nausea vomiting. Patient is a good historian. Patient has noted that his blood sugars have been running high over the past 2 days. He is typically in the low 200s but noted they were higher. He started with nausea vomiting on the way to work this morning. He came to the hospital. He denied symptoms such as chest pain, shortness of breath, fever or chills. When questioned, he did note a small wound on his right inner thigh that had previously had a small pustule. He told me he lanced it at home using a lancet but did not prepped the skin with alcohol beforehand. The area did leak a little bit of pus it which the patient photographed and showed me on his phone. The area is now somewhat more indurated without drainage. Of note, patient follows with endocrinology. He told me he had been there within the last 2 weeks, his hemoglobin A1c was around 8. He does tell me he is compliant with his insulin pump. Allergies Allergy/AdvReac Type Severity Reaction Status Date / Time latex AdvReac Rash Verified 11/27/20 15:02 Adhesive Tape AdvReac Unknown Unknown Uncoded 11/27/20 15:02 Home Medications Medication Instructions Recorded Confirmed Type glucagon (human recombinant) 1 mg See Rx Instructions .ROUTE 06/25/19 11/27/20 History solution for injection .COMPLEX PRN Guardian Sensor 3 #30 ea NS 07/07/19 10/29/20 Rx Quick-Set Paradigm #30 ea NS 07/07/19 10/29/20 Rx insulin pump syringe 3 mL ea 08/11/19 10/29/20 History Novolog U-100 Insulin aspart 100 150 unit CONTINUOUS SUBCUTANEOUS 08/18/20 11/27/20 Rx unit/mL subcutaneous solution INFUSION DAILY 90 Days #140 ml NS blood sugar diagnostic ea 10/29/20 History Past Med/Surg History Medical History (Updated 11/27/20 @ 17:37 by Mesfin De Jesus DO) Azoospermia Infertility Surgical History (Updated 01/16/20 @ 18:16 by Kelby Staples MD) Hx of oral surgery S/P ORIF (open reduction internal fixation) fracture Tibia/fibula fracture Family History (Updated 11/04/19 @ 08:36 by Cuco Dioxn MD) Mother Hypertension Father Hypertension Social History Smoking Status: Never smoker Hx Alcohol Use: Yes Alcohol type: beer Hx Substance Use: No Preferred Language: Cypriot Communication Ability: Effective Patternmaker Pressure Cast Required: No Beliefs That Will Affect Care: None Current Living Situation: Spouse current occupational status: employed Feels Safe at Home: Yes Assistive Devices: Glasses and Walker Review of Systems Constitutional: no fever, no chills, no weight loss and no increased appetite Respiratory: no cough, no chest congestion, no change in sputum, no dyspnea, no dyspnea on exertion, no hemoptysis and no pain on inspiration Cardiovascular: no chest pain with activity, no radiating jaw, neck or arm pain, no dyspnea, no orthopnea, no palpitations, no lightheadedness and no syncope Gastrointestinal: + nausea and + vomiting; no abdominal pain, no belching and no dysphagia Genitourinary: no dysuria, no difficulty urinating, no urinary frequency, no urinary hesitancy and no urinary incontinence Musculoskeletal: no back pain, no neck pain, no radicular pain and no loss of height Integumentary: + boil Neurologic: as per Subjective / HPI Physical Exam Constitutional: well developed; no acute distress Neck: trachea midline, no thyromegaly Respiratory: normal respiratory effort, lungs clear to auscultation Auscultation: lungs clear to auscultation bilaterally Cardiovascular: RRR, no murmur, no edema Heart Sounds: normal S1 and normal S2 Gastrointestinal (Abdomen): Inspection/Auscultation: abdomen normal to inspect ion; abdomen not distended and + abnormal bowel sounds Percussion/Palpation: abdomen nontender, no guarding, abdomen not rigid and + abdomen not soft Musculoskeletal: no cyanosis or clubbing, extremities motor strength 5/5 Extremities: extremities normal to inspection Skin: Right inner thigh with area of erythema, small induration. No drainage. Minimally tender to touch. Results & Data Results & Data ([facility]) Vital Signs (Past 12 Hours) Vital Signs Temp Pulse Resp BP Pulse Ox 11/27/20 15:11 85 22 133/73 99 11/27/20 15:00 80 16 96 11/27/20 14:31 75 14 141/77 H 98 11/27/20 14:15 36.5 C 87 18 133/78 97 PG Care Time/CCT Total # of Minutes Spent Total Time Spent with Patient: Total time spent is greater than 50% in coordination of care (as documented) at patient's floor/unit and/or counseling patient: Coding Level of Care Code 50377 Initial Inpt Care Lvl 3 Diagnoses DKA (diabetic ketoacidoses) E11.10 Diabetes mellitus type: type 1 Furuncle L02.92 Dyslipidemia E78.5 (1) DKA (diabetic ketoacidoses) Diabetes mellitus type: type 1
[2020-11-27] MEDS: D5W AND 1/2NSS + 20MEQ KCL 20 MEQ/1,000 ML BAG IV SCH (17:41)
[2020-11-27 17:55] LABS: Influenza A virus by PCR Negative (Neg); Influenza B virus by PCR Negative (Neg); RSV by PCR Negative (Neg); SARS CoV2 RNA(COVID-19) InHosp NEGATIVE (Negative)
[2020-11-27] MEDS ORDERED: ONDANSETRON INJ 2 MG/ML 2 ML VIAL IV PRN (19:26)
[2020-11-27] MEDS ORDERED: ACETAMINOPHEN 325 MG TAB PO PRN (19:26)
[2020-11-27] MEDS: ceFAZolin 1000MG 1,000 MG/7.5 ML SYR IV SCH (20:12)
[2020-11-27] MEDS: INSULIN ASPART 100 UNITS/ML 3 ML PEN SC SCH (21:41)
[2020-11-28] MEDS: DEXTROSE 50% 50 ML SYRINGE IV PRN ×3 (00:40→04:37)
[2020-11-28] MEDS: D5W AND 1/2NSS + 20MEQ KCL 20 MEQ/1,000 ML BAG IV SCH ×3 (00:46→19:01)
[2020-11-28 01:49] LABS: Base Excess VBG -2.2 mEq/L; HCO3 VBG 23 mmol/L; Oxygen Saturation VBG 79.9 %; PCO2 VBG 43 mmHg (38-50); PO2 VBG 43 mmHg; pH VBG 7.35 (7.36-7.41)
[2020-11-28 02:21] LABS: BUN Creatinine Ratio 21.1 (10-20); Calcium 8.1 mg/dl (8.5-10.1); Creatinine Clr Calc Pharmacy 95.5 ml/min; Est GFR (African American) 95.5; Est GFR (Non-African American) 82.4; Potassium 4.2 mmol/L (3.5-5.1)
[2020-11-28] MEDS: ceFAZolin 1000MG 1,000 MG/7.5 ML SYR IV SCH ×3 (04:00→20:55)
[2020-11-28 06:46] LABS: Basophils # (auto) 0.02 K/uL (0-0.2); Basophils % (auto) 0.1 %; Eosinophils # (auto) 0.13 K/uL (0-0.5); Eosinophils % (auto) 0.9 %; Hemoglobin 14.2 g/dL (14.0-18.0); Immature Granulocytes # (auto) 0.05 K/uL (0.00-0.02); Immature Granulocytes % (auto) 0.4 %; Lymphocytes # (auto) 2.44 K/uL (1.2-3.4); Lymphocytes % (auto) 17.1 %; Mean Corpuscular Hemoglobin 29.5 pg (25-34); Mean Corpuscular Hgb Conc 35.5 g/dL (32-36); Mean Platelet Volume 8.7 fL (7.4-10.4); Monocytes # (auto) 1.77 K/uL (0.11-0.59); Monocytes % (auto) 12.4 %; Neutrophils # (auto) 9.85 K/uL (1.4-6.5); Neutrophils % (auto) 69.1 %; Platelet Count 236 K/uL (130-400); RDW Coefficient of Variation 12.7 % (11.5-14.5); RDW Standard Deviation 38.1 fL (36.4-46.3); Red Blood Count 4.82 M/uL (4.7-6.1); White Blood Count 14.26 K/uL (4.8-10.8)
[2020-11-28 07:16] LABS: BUN Creatinine Ratio 20.5 (10-20); Calcium 8.8 mg/dl (8.5-10.1); Creatinine Clr Calc Pharmacy 99.6 ml/min; Est GFR (African American) 100.5; Est GFR (Non-African American) 86.7; Potassium 3.8 mmol/L (3.5-5.1)
[2020-11-28] MEDS: INSULIN ASPART 100 UNITS/ML 3 ML PEN SC SCH ×2 (08:00→14:41)
--- NOTE | 2020-11-28 11:42 | Electrocardiogram Report ---
Test Reason : Blood Pressure : / mmHG Vent. Rate : 078 BPM Atrial Rate : 078 BPM P-R Int : 128 ms QRS Dur : 104 ms QT Int : 396 ms P-R-T Axes : 074 058 052 degrees QTc Int : 451 ms Normal sinus rhythm Left atrial enlargement RSR' or QR pattern in V1 suggests right ventricular conduction delay Borderline ECG No previous ECGs available Confirmed by Slava Canchola ([id number]) on 11/28/2020 11:41:54 AM Referred By: REFERRED SELF Confirmed By:Slava Canchola
[2020-11-28] MEDS ORDERED: PHARMACY GLYCEMIC MGMT CONSULT PRN (14:11)
[2020-11-28] MEDS ORDERED: INSULIN ASPART 100 UNITS/ML VIAL SC PRN (14:45)
--- NOTE | 2020-11-28 15:07 | Pharmacy Report ---
Pharmacy Glycemic Short Note 2 - Date of Service November 28, 2020 - Glycemic Short BSG Results (Last 24 hours): 11/27/20 11/27/20 11/27/20 14:30 16:09 16:13 Glucose 424 H* POC Glucose 312 H* 334 H* 11/27/20 11/27/20 11/27/20 17:14 18:26 19:33 Glucose POC Glucose 289 H 271 H 286 H 11/27/20 11/27/20 11/27/20 20:37 21:30 22:33 Glucose POC Glucose 244 H 202 H 181 H 11/28/20 11/28/20 11/28/20 00:32 01:01 01:26 Glucose POC Glucose 99 117 H 151 H 11/28/20 11/28/20 11/28/20 01:40 02:27 03:32 Glucose 174 H POC Glucose 164 H 144 H 11/28/20 11/28/20 11/28/20 04:32 04:59 06:02 Glucose POC Glucose 111 H 157 H 124 H 11/28/20 11/28/20 11/28/20 06:32 07:01 07:35 Glucose 131 H POC Glucose 119 H 129 H 11/28/20 11/28/20 11/28/20 07:56 08:37 09:00 Glucose POC Glucose 148 H 261 H 271 H 11/28/20 11/28/20 11/28/20 09:45 10:28 11:30 Glucose POC Glucose 305 H* 280 H 262 H 11/28/20 11/28/20 11/28/20 13:18 13:30 14:36 Glucose POC Glucose 300 H 382 H* 266 H OUTPATIENT ANTIDIABETIC REGIMEN: * Medtronic 670G Novolog Insulin Pump w/ CGM * Basal Rate = 1.9 units/hr * Correction Factor = 20 * Carb Ratio = 7 * Goal Range = 80-130 * HbA1c = 9.1% (10/01/20) ASSESSMENT: * 25 yo M admitted yesterday secondary to DKA. Pharmacy was not consulted until this afternoon to assist with inpatient glycemic management. * Upon admission: IYR=614 mg/dL, Anion Gap=13.0, VBG pH=7.21, Beta-OH=66.37 * Patient was given a 10 unit IV insulin bolus followed by starting an insulin drip at 8.3 units/hr. Goal range was 150-250 mg/dL. IV fluids were started w/ D5 1/2 NS + 20 KCl at 150 mL/hr. BSGs trended down nicely on insulin drip: [phone] mg/dL. * Labs this morning were as follows: * AGT=905 mg/dL, Anion gap=6, VBG pH=7.35 * Insulin drip was running at 1.9 units/hr this AM which matched his home dose. Patient was left on D5 1/2 NS + 20 KCl at 150 mL/hr which has caused his BSG to increased back to 382 mg/dL this afternoon prompting a pharmacy consult. * Patient wants to restart his insulin pump which we agreed to. Patient has insulin pump supplies with him and enough insulin to last him at least 24 hours. RN will have patient read and sign agreement [id number] Insulin Pump Therapy Patient Agreement. RN will provide and explain form [id number] Flowsheet for Patient. Patient will document their insulin dose given on NS-824 which is kept at the bedside, available to caregivers upon request, and which becomes part of the permanent medical record. If at any time the patients condition evidences that he/she is not able to manage the insulin pump (i.e. frequent hypo/hyperglycemia) Pharmacy will assume glycemic control by discontinuing the pump & managing with SQ basal bolus insulin regimen for the interim. PLAN FOR INPATIENT GLYCEMIC CONTROL: * Overlap IV insulin infusion with patient's own insulin pump until BSG is less than 200 mg/dL then discontinue insulin infusion. * IV Insulin Infusion - changing goal range to 120-180 * Currently running at 1.4 units/hr * Goal Range = 120-180 * Novolog Insulin Pump PLAN FOR DISCHARGE: * [place] [facility] [place] Defer to them for insulin pump management upon discharge.
[2020-11-28 16:15] LABS: Appearance Urine Clear (Clear); Bilirubin Urine Negative (Negative); Blood Urine Negative (Negative); Color Urine Yellow; Glucose Urine UA 3+ (Negative); Ketones Urine 1+ (Negative); Leukocyte Esterase Urine Negative (Negative); Nitrite Urine Negative (Negative); Protein Urine Negative (Negative); Specific Gravity Urine 1.027 (1.000-1.030); Urobilinogen Urine Negative (Negative); pH Urine 5.5 (4.5-7.5)
[2020-11-28] MEDS: NovoLOG INSULIN PUMP SCH ×2 (16:30→21:22)
--- NOTE | 2020-11-28 22:08 | Hospitalist Progress Note ---
Date of Service November 28, 2020 Assessment & Plan (1) DKA (diabetic ketoacidoses): - Admit to monitored bed - Patient is being started on an insulin drip now. He received 10 units of IV regular insulin in the emergency room - Hydrate patient as per protocol, may require IV dextrose if blood sugars drop further - Blood sugars are now down to the high 200s, can change to D5W until anion gap closes - Start with clear liquids, can advance as tolerated once acute symptoms have resolved. - Patient will likely need better control as hemoglobin A1c is elevated, can follow with endocrinology -Patient remains on insulin drip. -also on insulin pump, once BS is below 200 will stop drip. Anion gap is closed, appreciate pharmacy input (2) Furuncle: - Small localized infection, although concerning with concomitant DKA this may be the inciting event - We will start IV Ancef, monitor for improvement. Consider changing over to oral antibiotics once patient's nausea and vomiting are improved - No drainage from wound available to culture (3) Dyslipidemia: Continue oral medications as patient has recovered from his nausea vomiting. Admission and Anticipated Discharge Date Admission Date: November 27, 2020 Subjective Patient reports feeling well. He has no new complaints. Review of Systems Review of Systems: All systems reviewed & are unremarkable except as noted in HPI & below Physical Exam Physical Exam: Constitutional: well developed; no acute distress Neck: trachea midline, no thyromegaly Respiratory: normal respiratory effort, lungs clear to auscultation Auscultation: lungs clear to auscultation bilaterally Cardiovascular: RRR, no murmur, no edema Heart Sounds: normal S1 and normal S2 Gastrointestinal (Abdomen): Inspection/Auscultation: abdomen normal to inspection; abdomen not distended and + abnormal bowel sounds Percussion/Palpation: abdomen nontender, no guarding, abdomen not rigid and + abdomen not soft Musculoskeletal: no cyanosis or clubbing, extremities motor strength 5/5 Extremities: extremities normal to inspection Skin: Right inner thigh with area of erythema, small induration. No drainage. Minimally tender to touch. Results & Data Results & Data ([facility]) Vital Signs (Past 12 Hours) Vital Signs Temp Pulse Pulse Resp BP Pulse Ox 11/28/20 19:55 36.7 C 58 L 18 121/75 97 11/28/20 16:16 36.8 C 57 L 20 121/70 98 11/28/20 14:00 63 11/28/20 11:51 36.4 C L 65 18 116/69 97 PG Care Time/CCT Total # of Minutes Spent Total Time Spent with Patient: Total time spent is greater than 50% in coordination of care (as documented) at patient's floor/unit and/or counseling patient: Coding Level of Care Code 37033 Subseq Hosp Care Lvl 2 Diagnoses DKA (diabetic ketoacidoses) E11.10 Diabetes mellitus type: type 1 Furuncle L02.92 Dyslipidemia E78.5 Time Spent (min) 25 (1) DKA (diabetic ketoacidoses) Diabetes mellitus type: type 1
[2020-11-29] MEDS: ceFAZolin 1000MG 1,000 MG/7.5 ML SYR IV SCH (04:35)
[2020-11-29] MEDS: NovoLOG INSULIN PUMP SCH (07:50)
[2020-11-29 07:56] LABS: BUN Creatinine Ratio 17.1 (10-20); Creatinine Clr Calc Pharmacy 118.1 ml/min; Est GFR (African American) 123.5; Est GFR (Non-African American) 106.6; Potassium 3.9 mmol/L (3.5-5.1)
[2020-11-29 11:42] LABS: Basophils # (auto) 0.01 K/uL (0-0.2); Basophils % (auto) 0.1 %; Eosinophils # (auto) 0.12 K/uL (0-0.5); Eosinophils % (auto) 1.4 %; Hematocrit (blood only) 43.2 % (42-52); Hemoglobin 15.2 g/dL (14.0-18.0); Immature Granulocytes # (auto) 0.01 K/uL (0.00-0.02); Immature Granulocytes % (auto) 0.1 %; Lymphocytes # (auto) 1.69 K/uL (1.2-3.4); Lymphocytes % (auto) 20.4 %; Mean Corpuscular Hemoglobin 29.5 pg (25-34); Mean Corpuscular Hgb Conc 35.2 g/dL (32-36); Mean Corpuscular Volume 83.7 fL (80-100); Mean Platelet Volume 8.8 fL (7.4-10.4); Monocytes # (auto) 0.87 K/uL (0.11-0.59); Monocytes % (auto) 10.5 %; Neutrophils % (auto) 67.5 %; Platelet Count 223 K/uL (130-400); RDW Coefficient of Variation 12.5 % (11.5-14.5); Red Blood Count 5.16 M/uL (4.7-6.1)
--- NOTE | 2020-11-30 08:50 | Discharge Summary ---
Date of Service November 29, 2020 Admission HPI Per Admitting Provider This is a 25-year-old male with past medical history of type 1 diabetes mellitus on insulin pump the presents today complaining of nausea vomiting. Patient is a good historian. Patient has noted that his blood sugars have been running high over the past 2 days. He is typically in the low 200s but noted they were higher. He started with nausea vomiting on the way to work this morning. He came to the hospital. He denied symptoms such as chest pain, shortness of breath, fever or chills. When questioned, he did note a small wound on his right inner thigh that had previously had a small pustule. He told me he lanced it at home using a lancet but did not prepped the skin with alcohol beforehand. The area did leak a little bit of pus it which the patient photographed and showed me on his phone. The area is now somewhat more indurated without drainage. Of note, patient follows with endocrinology. He told me he had been there within the last 2 weeks, his hemoglobin A1c was around 8. He does tell me he is compliant with his insulin pump. Principal Diagnosis Diabetic Ketoacidosis Discharge Exam Constitutional: well developed; no acute distress Neck: trachea midline, no thyromegaly Respiratory: normal respiratory effort, lungs clear to auscultation Auscultation: lungs clear to auscultation bilaterally Cardiovascular: RRR, no murmur, no edema Heart Sounds: normal S1 and normal S2 Gastrointestinal (Abdomen): Inspection/Auscultation: abdomen normal to inspection; abdomen not distended and + abnormal bowel sounds Percussion/Palpation: abdomen nontender, no guarding, abdomen not rigid and + abdomen not soft Musculoskeletal: no cyanosis or clubbing, extremities motor strength 5/5 Extre mities: extremities normal to inspection Skin: Right inner thigh with area of erythema, small induration. No drainage. Minimally tender to touch. Discharge Data Allergies Allergy/AdvReac Type Severity Reaction Status Date / Time adhesive tape AdvReac Unknown Unknown Verified 11/27/20 19:58 latex AdvReac Rash Verified 11/27/20 15:02 Consultations 11/27/20 16:44 ED Decision to Admit Stat Hospital Course (1) DKA (diabetic ketoacidoses): - Admit to monitored bed - Patient is being started on an insulin drip now. He received 10 units of IV regular insulin in the emergency room - Hydrate patient as per protocol, may require IV dextrose if blood sugars drop further - Blood sugars are now down to the high 200s, can change to D5W until anion gap closes - Start with clear liquids, can advance as tolerated once acute symptoms have resolved. - Patient will likely need better control as hemoglobin A1c is elevated, can follow with endocrinology -Patient remains on insulin drip. -also on insulin pump, once BS is below 200 will stop drip. Anion gap is closed, appreciate pharmacy input On 11/29 will discharge on insulin pump, instrcutions given. Anion gap is closed. Blood sugar improved If blood sugars remain elevated, to please contact chute greaser (2) Furuncle: - Small localized infection, although concerning with concomitant DKA this may be the inciting event - We will start IV Ancef, monitor for improvement. Consider changing over to oral antibiotics once patient's nausea and vomiting are improved - No drainage from wound available to culture -will continue antibiotic for 7 additional days WBC improved (3) Dyslipidemia: Continue oral medications as patient has recovered from his nausea vomiting. (4) YANE (acute kidney injury): Acute Kidney Infection in setting of DKA treated and resolved with IVF and insulin drip administration Resolved with IVF Total Time Total Time Spent Total Time Spent (In Minutes): 32 Total Time Includes: Examination of the Patient, Discharge Planning and Medication Reconciliation Discharge Plan Discharge Items Patient Disposition: Home - Self-Care Reason For Visit: DKA Discharge Diagnosis: DKA Condition on Discharge: Fair Activity: Resume your previous activity Non-emergency contact: Primary Care Provider Call non-emergency contact if: you have any medication questions Follow-up/Referrals: PCP,NO [Primary Care Provider] - Diet: Carb Count or DM1 Addtl Attending Provider Instructions: Recommend to resume insulin pump. Monitor blood sugars at home. If blood sugars remain above your regular goal, please call chute greaser for a quicker appointment. You will also be on antibiotics for 1 weeks Pending Studies at Discharge: No Stand-Alone Forms: My Universal [employer], Smoking Cessation Medications and DC Order Prescriptions: New cephalexin 500 mg tablet 500 mg PO Q6H 7 Days Qty: 28 RF: 0 Continued (DME) Quick-Set Paradigm infusion set See Rx Instructions .ROUTE .MEDSUPPLY Qty: 30 RF: 3 (DME) Guardian Sensor 3 device See Rx Instructions .ROUTE .MEDSUPPLY Qty: 30 RF: 3 Novolog U-100 Insulin aspart 100 unit/mL solution 150 unit continuous subcutaneous infusion DAILY 90 Days Qty: 140 RF: 3 Glucagon Emergency Kit (human) 1 mg recon soln See Rx Instructions .ROUTE .COMPLEX PRN (Reason: Hypoglycemia) RF: 0 (DME) Paradigm [place] 3 mL misc See Rx Instructions .ROUTE .MEDSUPPLY RF: 0 (DME) Contour Next Test Strips Strip See Rx Instructions .ROUTE .MEDSUPPLY RF: 0 Discharge Orders: Discharge Order (Routine); Ordered 11/29/20 Ordered By: Rubén Lawson Admission Data Admit Date/Time: 11/27/20 17:44 Attending Provider: Rubén Lawson Admit Provider: Mesfin De Jesus Primary Care Provider: PCP,NO Other Providers: Mesfin De Jesus Other Interventions: Discharge Summary Assessment (RN) Last Done: 11/29/20 11:00 Coding Level of Care Code D/C Day Management >30 mins Diagnoses DKA (diabetic ketoacidoses) E11.10 Diabetes mellitus type: type 1 Furuncle L02.92 Dyslipidemia E78.5 YANE (acute kidney injury) N17.9
== END 2020-11-29 12:56 | disposition home or self-care (01) | DRG 638 ==
LOC: ED 14:10 → SUATTDRO 17:44 → 2S 17:44